=== PATIENT | male | born 1935 | race Caucasian/White ===

== ENCOUNTER 2017-08-26 12:37 | Inpatient (IN) ==
[2017-08-26 13:28] LABS: Basophils # 0.1 10*3/uL (0.0-0.2); Basophils % 0.7 % (0.0-0.8); Eosinophils # 0.1 10*3/uL (0.0-0.87); Eosinophils % 0.5 % (0.00-10.9); Hematocrit 38.5 VOL% (42.0-52.0); Hemoglobin 13.4 GM/DL (14.0-18.0); Immature Granulocytes % 0.2 %; Immature Granulocytes Absolute 0.03 #; Lymphocytes # 1.8 10*3/uL (1.4-4.0); Lymphocytes % 13.3 % (21.2-54.2); Mean Corpuscular HGB Conc 34.8 GM/DL (32-36); Mean Corpuscular Hemoglobin 31 PG (27-34); Mean Corpuscular Volume 88.3 FL (87-102); Mean Platelet Volume 10.2 FL (9.6-12.0); Monocytes % 7.1 % (1.7-12.7); Neutrophils # 10.5 10*3/uL (1.4-7.4); Neutrophils % 78.2 % (38.7-73.9); Platelet Count 269 T/CUMM (130-400); Red Blood Count 4.36 MC/CUMM (3.8-5.5); Red Cell Distribution Width 13.5 % (9.3-17.3); White Blood Count 13.4 T/CUMM (4-12)
[2017-08-26 13:37] LABS: Alanine Aminotransferase 17 U/L (16-61); Albumin 3.8 G/DL (3.4-5.0); Alkaline Phosphatase 78 U/L (45-117); Aspartate Amino Transferase 21 U/L (0-37); Bilirubin,Total < 0.39 MG/DL (0.2-1.0); Blood Urea Nitrogen 14 MG/DL (7-18); Calcium 8.7 MG/DL (8.5-10.1); Glucose 138 MG/DL (74-106); Magnesium 2.3 MG/DL (1.8-2.4); Osmolality,Calculated 266.5 MOS/KG (273-304); Potassium 3.8 MMOL/L (3.5-5.1); Sodium 132 MMOL/L (136-145); Total Protein 7.4 G/DL (6.4-8.3)
[2017-08-26 14:24] LABS: Apearance,Urine Slightly Hazy (Clear); Bilirubin,Urine Negative (Negative); Blood, Urine Negative (Negative); Glucose,Urine (UA) Negative (Negative); Ketones,Urine Negative (Negative); Nitrite,Urine Negative (Negative); Protein,Urine Negative; RBC,Urine <1 /HPF (0-4); Urine Color Yellow (Yellow); Urine Specific Gravity 1.013 (1.001-1.035); Urine Urobilinogen < 2.0 EU/DL (0.2-1.0); WBC,Urine 1 /HPF (0-6)
[2017-08-26] MEDS ORDERED: ACETAMINOPHEN 325 MG TABLET PO PRN (14:36)
[2017-08-26] MEDS ORDERED: ONDANSETRON 4 MG/2 ML VIAL IV PRN (14:36)
[2017-08-26] MEDS ORDERED: LEVOFLOXACIN INJ 500 MG in PREMIX 1 EACH IV STA (14:36)
[2017-08-26] MEDS ORDERED: GLUCAGON 1 MG VIAL IM PRN (14:36)
[2017-08-26] MEDS ORDERED: DEXTROSE 50% 25 GM/50 ML VIAL IV PRN (14:36)
[2017-08-26] MEDS ORDERED: LEVOFLOXACIN INJ 100 ML IV ONE (14:57)
[2017-08-26] MEDS: INSULIN REGULAR 100 UNIT/ML SUBCUT SCH ×2 (17:53→21:24)
[2017-08-26] MEDS ORDERED: ALBUTEROL 2.5 MG/3 ML NEB RESP TX PRN (19:00)
[2017-08-26] MEDS ORDERED: PHENYTOIN ER 100 MG CAPSULE PO ONE (21:00)
[2017-08-26] MEDS ORDERED: PHENYTOIN ER 100 MG CAPSULE PO SCH (21:00)
[2017-08-26] MEDS: CALCIUM (CARBONATE)/VITAMIN D 600 MG-400 UNIT TABLET PO SCH (21:23)
[2017-08-26] MEDS: cloNIDine 0.1 MG TABLET PO SCH (21:23)
[2017-08-26] MEDS: DOCUSATE SODIUM 100 MG CAPSULE PO SCH (21:23)
[2017-08-26] MEDS: POTASSIUM CHLORIDE INJ 10 MEQ in SODIUM CHLORIDE 0.9% 1,000 ML IV SCH (21:24)
[2017-08-27 07:29] LABS: Basophils # 0.1 10*3/uL (0.0-0.2); Basophils % 0.9 % (0.0-0.8); Eosinophils # 0.2 10*3/uL (0.0-0.87); Eosinophils % 2.7 % (0.00-10.9); Hematocrit 36.3 VOL% (42.0-52.0); Hemoglobin 12.8 GM/DL (14.0-18.0); Immature Granulocytes % 0.4 %; Immature Granulocytes Absolute 0.03 #; Lymphocytes % 27.5 % (21.2-54.2); Mean Corpuscular HGB Conc 35.3 GM/DL (32-36); Mean Corpuscular Hemoglobin 31 PG (27-34); Mean Corpuscular Volume 87.1 FL (87-102); Mean Platelet Volume 10.4 FL (9.6-12.0); Monocytes # 0.8 10*3/uL (0.11-0.8); Monocytes % 10.5 % (1.7-12.7); Neutrophils # 4.3 10*3/uL (1.4-7.4); Platelet Count 242 T/CUMM (130-400); Red Blood Count 4.17 MC/CUMM (3.8-5.5); Red Cell Distribution Width 13.6 % (9.3-17.3); White Blood Count 7.4 T/CUMM (4-12)
[2017-08-27 08:08] LABS: Calcium 8.6 MG/DL (8.5-10.1); Free T4 (Free Thyroxine) 0.95 NG/DL (0.76-1.46); Magnesium 2.1 MG/DL (1.8-2.4); Osmolality,Calculated 272.8 MOS/KG (273-304); Potassium 4.1 MMOL/L (3.5-5.1); Risk Ratio 3.24; Thyroid Stimulating Hormone 0.766 uIU/ml (0.358-3.74); VLDL CHOLESTEROL 21.2 MG/DL
[2017-08-27] MEDS: INSULIN REGULAR 100 UNIT/ML SUBCUT SCH ×4 (08:24→21:09)
[2017-08-27 08:41] LABS: Sedimentation Rate-Westergren 13 MM/HR (0-20)
[2017-08-27] MEDS: GLIMEPIRIDE 2 MG TABLET PO SCH ×2 (08:45→16:52)
[2017-08-27] MEDS: hydroCHLOROthiazide 12.5 MG CAPSULE PO SCH (08:46)
[2017-08-27] MEDS: ASPIRIN EC 81 MG TABLET PO SCH (08:46)
[2017-08-27] MEDS: LOSARTAN 50 MG TABLET PO SCH (08:46)
[2017-08-27] MEDS: PANTOPRAZOLE 40 MG TABLET PO SCH (08:46)
[2017-08-27] MEDS: DOCUSATE SODIUM 100 MG CAPSULE PO SCH ×2 (08:46→21:10)
[2017-08-27] MEDS: MULTIVITAMIN (CENTRUM) TABLET PO SCH (08:47)
[2017-08-27] MEDS: PHENYTOIN ER 100 MG CAPSULE PO SCH ×2 (08:47→21:11)
[2017-08-27] MEDS: MAGNESIUM OXIDE 400 MG TABLET PO SCH (08:47)
[2017-08-27] MEDS: POTASSIUM CHLORIDE INJ 10 MEQ in SODIUM CHLORIDE 0.9% 1,000 ML IV SCH ×2 (08:48→23:51)
[2017-08-27] MEDS ORDERED: PHENYTOIN ER 100 MG CAPSULE PO SCH (09:00)
[2017-08-27] MEDS: CALCIUM (CARBONATE)/VITAMIN D 600 MG-400 UNIT TABLET PO SCH (21:10)
[2017-08-27] MEDS: cloNIDine 0.1 MG TABLET PO SCH (21:10)
[2017-08-28 05:03] LABS: Basophils # 0.1 10*3/uL (0.0-0.2); Basophils % 1.3 % (0.0-0.8); Eosinophils # 0.3 10*3/uL (0.0-0.87); Eosinophils % 4.1 % (0.00-10.9); Hematocrit 36.4 VOL% (42.0-52.0); Hemoglobin 12.6 GM/DL (14.0-18.0); Immature Granulocytes % 0.3 %; Immature Granulocytes Absolute 0.02 #; Lymphocytes # 2.8 10*3/uL (1.4-4.0); Lymphocytes % 35.5 % (21.2-54.2); Mean Corpuscular HGB Conc 34.6 GM/DL (32-36); Mean Corpuscular Hemoglobin 31 PG (27-34); Mean Corpuscular Volume 88.1 FL (87-102); Mean Platelet Volume 10.1 FL (9.6-12.0); Monocytes # 0.8 10*3/uL (0.11-0.8); Monocytes % 10.2 % (1.7-12.7); Neutrophils # 3.9 10*3/uL (1.4-7.4); Neutrophils % 48.6 % (38.7-73.9); Platelet Count 252 T/CUMM (130-400); Red Blood Count 4.13 MC/CUMM (3.8-5.5); Red Cell Distribution Width 13.5 % (9.3-17.3)
[2017-08-28 05:31] LABS: Calcium 8.3 MG/DL (8.5-10.1); Osmolality,Calculated 274.5 MOS/KG (273-304); Potassium 4.1 MMOL/L (3.5-5.1)
[2017-08-28] MEDS: INSULIN REGULAR 100 UNIT/ML SUBCUT SCH ×3 (08:26→17:00)
[2017-08-28] MEDS ORDERED: POLYETHYLENE GLYCOL POWDER 17 GM PACK PO PRN (09:07)
[2017-08-28] MEDS: POTASSIUM CHLORIDE INJ 10 MEQ in SODIUM CHLORIDE 0.9% 1,000 ML IV SCH (09:09)
[2017-08-28] MEDS: MULTIVITAMIN (CENTRUM) TABLET PO SCH (09:13)
[2017-08-28] MEDS: PHENYTOIN ER 100 MG CAPSULE PO SCH (09:16)
[2017-08-28] MEDS: LOSARTAN 50 MG TABLET PO SCH (09:17)
[2017-08-28] MEDS: ASPIRIN EC 81 MG TABLET PO SCH (09:18)
[2017-08-28] MEDS: PANTOPRAZOLE 40 MG TABLET PO SCH (09:18)
[2017-08-28] MEDS: MAGNESIUM OXIDE 400 MG TABLET PO SCH (09:19)
[2017-08-28] MEDS: GLIMEPIRIDE 2 MG TABLET PO SCH ×2 (09:20→18:21)
[2017-08-28] MEDS: DOCUSATE SODIUM 100 MG CAPSULE PO SCH (09:20)
[2017-08-28] MEDS: hydroCHLOROthiazide 12.5 MG CAPSULE PO SCH (09:20)
[2017-08-28 12:37] VITALS: BP 135/72
[2017-08-30 14:08] LABS: 25-Hydroxy D Total 47 ng/mL; 25-Hydroxy D2 < 4.0 ng/mL; 25-Hydroxy D3 47 ng/mL
== END 2017-08-28 17:00 | disposition home or self-care (01) | DRG 101 ==
LOC: EDUNIT# → EDBD → N.ED 12:37 → N.EDINP 12:37 → N.2E 16:49
PROVIDERS: ADMIT Family Medicine; ATTEND Family Medicine

== ENCOUNTER 2018-04-16 07:15 | Inpatient (IN) ==
[2018-04-16 08:12] LABS: Basophils # 0.1 10*3/uL (0.0-0.2); Basophils % 0.8 % (0.0-0.8); Eosinophils # 0.2 10*3/uL (0.0-0.87); Eosinophils % 0.8 % (0.00-10.9); Hematocrit 42.8 VOL% (42.0-52.0); Immature Granulocytes % 1.3 %; Immature Granulocytes Absolute 0.23 #; Lymphocytes # 2.7 10*3/uL (1.4-4.0); Lymphocytes % 15.4 % (21.2-54.2); Mean Corpuscular HGB Conc 32.7 GM/DL (32-36); Mean Corpuscular Hemoglobin 31 PG (27-34); Mean Corpuscular Volume 93.9 FL (87-102); Mean Platelet Volume 10.2 FL (9.6-12.0); Monocytes # 0.7 10*3/uL (0.11-0.8); Monocytes % 4.1 % (1.7-12.7); Neutrophils # 13.8 10*3/uL (1.4-7.4); Neutrophils % 77.6 % (38.7-73.9); Platelet Count 314 T/CUMM (130-400); Red Blood Count 4.56 MC/CUMM (3.8-5.5); Red Cell Distribution Width 12.8 % (9.3-17.3); White Blood Count 17.7 T/CUMM (4-12)
[2018-04-16 08:39] LABS: Alanine Aminotransferase 21 U/L (16-61); Albumin 4.2 G/DL (3.4-5.0); Alkaline Phosphatase 100 U/L (45-117); Aspartate Amino Transferase 18 U/L (0-37); Bilirubin,Total < 0.39 MG/DL (0.2-1.0); Blood Urea Nitrogen 20 MG/DL (7-18); Calcium 8.9 MG/DL (8.5-10.1); Glucose 256 MG/DL (74-106); Osmolality,Calculated 273.7 MOS/KG (273-304); Potassium 3.9 MMOL/L (3.5-5.1); Sodium 131 MMOL/L (136-145); Total Protein 7.9 G/DL (6.4-8.3)
[2018-04-16 09:00] LABS: Apearance,Urine Slightly Cloudy (Clear); Bilirubin,Urine Negative (Negative); Blood, Urine Trace mg/dL (Negative); Glucose,Urine (UA) 50 mg/dL (Negative); Ketones,Urine Negative (Negative); Nitrite,Urine Negative (Negative); Protein,Urine 30 MG/DL; Urine Color Yellow (Yellow); Urine Specific Gravity 1.015 (1.001-1.035); Urine Urobilinogen 0.2 EU/DL (0.2-1.0)
[2018-04-16 09:22] LABS: RBC,Urine 0-3 /HPF (0-4); WBC,Urine 0-3 /HPF (0-6)
[2018-04-16] MEDS ORDERED: LORazepam 2 MG/1 ML VIAL ONE (09:44)
[2018-04-16] MEDS ORDERED: LORazepam 2 MG/1 ML VIAL IV STA (09:46)
[2018-04-16] MEDS ORDERED: levETIRAcetam 500 MG/5 ML VIAL IV ONE (09:52)
[2018-04-16] MEDS ORDERED: ONDANSETRON 4 MG/2 ML VIAL IV PRN (11:43)
[2018-04-16] MEDS ORDERED: GLUCAGON 1 MG VIAL IM PRN (11:43)
[2018-04-16] MEDS ORDERED: DEXTROSE 50% 25 GM/50 ML VIAL IV PRN (11:43)
[2018-04-16] MEDS ORDERED: hydroCHLOROthiazide 12.5 MG CAPSULE PO SCH (13:00)
[2018-04-16] MEDS: SODIUM CHLORIDE 0.9% 1,000 ML IV SCH ×2 (13:54→23:08)
[2018-04-16] MEDS: INSULIN REGULAR 100 UNIT/ML SUBCUT SCH ×2 (13:55→19:00)
[2018-04-16] MEDS: LORazepam 2 MG/1 ML VIAL IV PRN ×3 (14:00→23:05)
[2018-04-16] MEDS ORDERED: PHENYTOIN ER 100 MG CAPSULE PO SCH (15:00)
[2018-04-16] MEDS: TAMSULOSIN 0.4 MG CAPSULE PO SCH (19:00)
[2018-04-16] MEDS: GLIMEPIRIDE 2 MG TABLET PO SCH (19:00)
[2018-04-16] MEDS ORDERED: levETIRAcetam 500 MG TABLET PO SCH (21:00)
[2018-04-16] MEDS: cloNIDine 0.1 MG TABLET PO SCH (21:12)
[2018-04-16] MEDS: CALCIUM (CARBONATE)/VITAMIN D 600 MG-400 UNIT TABLET PO SCH (21:12)
[2018-04-16] MEDS: DOCUSATE SODIUM 100 MG CAPSULE PO SCH (21:12)
[2018-04-16 23:38] LABS: Apearance,Urine CLEAR (Clear); Bacteria,Urine Occasional /HPF (Few); Bilirubin,Urine Negative (Negative); Blood, Urine Small mg/dL (Negative); Glucose,Urine (UA) Negative (Negative); Ketones,Urine Negative (Negative); Mucus,Urine Occasional /LPF (Occasional); Nitrite,Urine Negative (Negative); Protein,Urine Negative; RBC,Urine 2 /HPF (0-4); Urine Color Straw (Yellow); Urine Specific Gravity 1.006 (1.001-1.035); Urine Urobilinogen < 2.0 EU/DL (0.2-1.0)
[2018-04-17] MEDS: INSULIN REGULAR 100 UNIT/ML SUBCUT SCH ×5 (00:50→23:55)
[2018-04-17] MEDS: SODIUM CHLORIDE 0.9% 1,000 ML IV SCH ×3 (03:00→19:58)
[2018-04-17 05:10] LABS: Basophils # 0.1 10*3/uL (0.0-0.2); Basophils % 0.7 % (0.0-0.8); Eosinophils # 0.1 10*3/uL (0.0-0.87); Eosinophils % 0.8 % (0.00-10.9); Hematocrit 36.7 VOL% (42.0-52.0); Hemoglobin 12.9 GM/DL (14.0-18.0); Immature Granulocytes % 0.6 %; Immature Granulocytes Absolute 0.07 #; Lymphocytes # 1.6 10*3/uL (1.4-4.0); Lymphocytes % 12.5 % (21.2-54.2); Mean Corpuscular HGB Conc 35.1 GM/DL (32-36); Mean Corpuscular Hemoglobin 31 PG (27-34); Mean Platelet Volume 10.2 FL (9.6-12.0); Monocytes # 1.3 10*3/uL (0.11-0.8); Monocytes % 10.2 % (1.7-12.7); Neutrophils # 9.5 10*3/uL (1.4-7.4); Neutrophils % 75.2 % (38.7-73.9); Platelet Count 282 T/CUMM (130-400); Red Blood Count 4.22 MC/CUMM (3.8-5.5); Red Cell Distribution Width 12.7 % (9.3-17.3); White Blood Count 12.6 T/CUMM (4-12)
[2018-04-17 05:41] LABS: Albumin 3.1 G/DL (3.4-5.0); Bilirubin,Total 0.6 MG/DL (0.2-1.0); Calcium 8.3 MG/DL (8.5-10.1); Free T4 (Free Thyroxine) 0.91 NG/DL (0.76-1.46); Potassium 3.5 MMOL/L (3.5-5.1); Thyroid Stimulating Hormone 0.629 uIU/ml (0.358-3.74); Total Protein 6.8 G/DL (6.4-8.3)
[2018-04-17] MEDS ORDERED: PANTOPRAZOLE 40 MG TABLET PO SCH (09:00)
[2018-04-17 09:05] LABS: Sedimentation Rate-Westergren 15 MM/HR (0-20)
[2018-04-17] MEDS: GLIMEPIRIDE 2 MG TABLET PO SCH ×2 (10:25→17:30)
[2018-04-17] MEDS: ASPIRIN EC 325 MG TABLET PO SCH (10:26)
[2018-04-17] MEDS: DOCUSATE SODIUM 100 MG CAPSULE PO SCH ×2 (10:26→20:10)
[2018-04-17] MEDS: LOSARTAN 50 MG TABLET PO SCH (10:26)
[2018-04-17] MEDS: MULTIVITAMIN (CENTRUM) TABLET PO SCH (10:26)
[2018-04-17] MEDS: hydroCHLOROthiazide 12.5 MG CAPSULE PO SCH (10:26)
[2018-04-17] MEDS: MAGNESIUM OXIDE 400 MG TABLET PO SCH (10:27)
[2018-04-17] MEDS: ASCORBIC ACID 500 MG TABLET PO SCH (10:27)
[2018-04-17] MEDS: CALCITONIN NASAL SPRAY 3.7 ML BOTTLE ONE NARE SCH (10:27)
[2018-04-17] MEDS: TAMSULOSIN 0.4 MG CAPSULE PO SCH (17:30)
[2018-04-17] MEDS: PANTOPRAZOLE 40 MG VIAL IV SCH (17:30)
[2018-04-17] MEDS: cloNIDine 0.1 MG TABLET PO SCH (20:10)
[2018-04-17] MEDS: CALCIUM (CARBONATE)/VITAMIN D 600 MG-400 UNIT TABLET PO SCH (20:10)
[2018-04-17] MEDS: LORazepam 2 MG/1 ML VIAL IV PRN (22:25)
[2018-04-18] MEDS: SODIUM CHLORIDE 0.9% 1,000 ML IV SCH ×3 (03:14→15:50)
[2018-04-18] MEDS: INSULIN REGULAR 100 UNIT/ML SUBCUT SCH ×4 (05:36→23:41)
[2018-04-18 05:40] LABS: Basophils # 0.1 10*3/uL (0.0-0.2); Basophils % 1.1 % (0.0-0.8); Eosinophils # 0.1 10*3/uL (0.0-0.87); Eosinophils % 0.8 % (0.00-10.9); Hematocrit 36.5 VOL% (42.0-52.0); Hemoglobin 12.8 GM/DL (14.0-18.0); Immature Granulocytes % 0.6 %; Immature Granulocytes Absolute 0.07 #; Lymphocytes # 1.1 10*3/uL (1.4-4.0); Lymphocytes % 9.4 % (21.2-54.2); Mean Corpuscular HGB Conc 35.1 GM/DL (32-36); Mean Corpuscular Hemoglobin 31 PG (27-34); Mean Corpuscular Volume 87.3 FL (87-102); Monocytes # 1.3 10*3/uL (0.11-0.8); Monocytes % 10.5 % (1.7-12.7); Neutrophils # 9.3 10*3/uL (1.4-7.4); Neutrophils % 77.6 % (38.7-73.9); Platelet Count 243 T/CUMM (130-400); Red Blood Count 4.18 MC/CUMM (3.8-5.5); Red Cell Distribution Width 12.5 % (9.3-17.3)
[2018-04-18 05:57] LABS: Albumin 2.9 G/DL (3.4-5.0); Bilirubin,Total 0.5 MG/DL (0.2-1.0); Calcium 8.1 MG/DL (8.5-10.1); Osmolality,Calculated 271.8 MOS/KG (273-304); Potassium 3.6 MMOL/L (3.5-5.1); Total Protein 6.6 G/DL (6.4-8.3)
[2018-04-18] MEDS: PANTOPRAZOLE 40 MG VIAL IV SCH (09:16)
[2018-04-18] MEDS: GLIMEPIRIDE 2 MG TABLET PO SCH ×2 (15:08→19:43)
[2018-04-18] MEDS: ASPIRIN EC 325 MG TABLET PO SCH (15:08)
[2018-04-18] MEDS: DOCUSATE SODIUM 100 MG CAPSULE PO SCH ×2 (15:09→20:20)
[2018-04-18] MEDS: MULTIVITAMIN (CENTRUM) TABLET PO SCH (15:09)
[2018-04-18] MEDS: hydroCHLOROthiazide 12.5 MG CAPSULE PO SCH (15:10)
[2018-04-18] MEDS: LOSARTAN 50 MG TABLET PO SCH (15:10)
[2018-04-18] MEDS: MAGNESIUM OXIDE 400 MG TABLET PO SCH (15:11)
[2018-04-18] MEDS: ASCORBIC ACID 500 MG TABLET PO SCH (15:11)
[2018-04-18] MEDS: CALCITONIN NASAL SPRAY 3.7 ML BOTTLE ONE NARE SCH (15:11)
[2018-04-18] MEDS: TAMSULOSIN 0.4 MG CAPSULE PO SCH (19:43)
[2018-04-18] MEDS ORDERED: DILTIAZEM 100 MG VIAL.ADD IV ONE (20:04)
[2018-04-18] MEDS: ENOXAPARIN 30 MG/0.3 ML SYRINGE SUBCUT SCH (20:06)
[2018-04-18] MEDS: DILTIAZEM INJ 100 MG in SODIUM CHLORIDE 0.9% 100 ML IV SCH (20:06)
[2018-04-18] MEDS: CALCIUM (CARBONATE)/VITAMIN D 600 MG-400 UNIT TABLET PO SCH (20:19)
[2018-04-18] MEDS: cloNIDine 0.1 MG TABLET PO SCH (20:19)
[2018-04-18 21:28] LABS: Calcium 8.4 MG/DL (8.5-10.1); Osmolality,Calculated 274.5 MOS/KG (273-304); Potassium 3.7 MMOL/L (3.5-5.1); Thyroid Stimulating Hormone 1.46 uIU/ml (0.358-3.74)
[2018-04-19] MEDS: SODIUM CHLORIDE 0.9% 1,000 ML IV SCH ×3 (00:03→16:51)
[2018-04-19] MEDS: INSULIN REGULAR 100 UNIT/ML SUBCUT SCH ×3 (05:47→20:34)
[2018-04-19 06:13] LABS: Osmolality,Calculated 274.5 MOS/KG (273-304); Potassium 3.9 MMOL/L (3.5-5.1)
[2018-04-19 08:05] LABS: Basophils # 0.1 10*3/uL (0.0-0.2); Basophils % 0.8 % (0.0-0.8); Eosinophils # 0.1 10*3/uL (0.0-0.87); Eosinophils % 0.4 % (0.00-10.9); Hematocrit 37.1 VOL% (42.0-52.0); Hemoglobin 12.8 GM/DL (14.0-18.0); Immature Granulocytes % 0.7 %; Lymphocytes # 1.1 10*3/uL (1.4-4.0); Lymphocytes % 8.1 % (21.2-54.2); Mean Corpuscular HGB Conc 34.5 GM/DL (32-36); Mean Corpuscular Hemoglobin 31 PG (27-34); Mean Corpuscular Volume 88.3 FL (87-102); Mean Platelet Volume 10.3 FL (9.6-12.0); Monocytes # 1.4 10*3/uL (0.11-0.8); Monocytes % 10.2 % (1.7-12.7); Neutrophils # 11.1 10*3/uL (1.4-7.4); Neutrophils % 79.8 % (38.7-73.9); Platelet Count 244 T/CUMM (130-400); Red Cell Distribution Width 12.4 % (9.3-17.3); White Blood Count 13.9 T/CUMM (4-12)
[2018-04-19] MEDS: PANTOPRAZOLE 40 MG VIAL IV SCH (10:17)
[2018-04-19] MEDS: MULTIVITAMIN (CENTRUM) TABLET PO SCH (15:58)
[2018-04-19] MEDS: GLIMEPIRIDE 2 MG TABLET PO SCH ×2 (15:58→20:33)
[2018-04-19] MEDS: ASPIRIN EC 325 MG TABLET PO SCH (15:58)
[2018-04-19] MEDS: DOCUSATE SODIUM 100 MG CAPSULE PO SCH ×2 (15:59→21:25)
[2018-04-19] MEDS: LOSARTAN 50 MG TABLET PO SCH (15:59)
[2018-04-19] MEDS: hydroCHLOROthiazide 12.5 MG CAPSULE PO SCH (16:00)
[2018-04-19] MEDS: CALCITONIN NASAL SPRAY 3.7 ML BOTTLE ONE NARE SCH (16:00)
[2018-04-19] MEDS: MAGNESIUM OXIDE 400 MG TABLET PO SCH (16:00)
[2018-04-19] MEDS: ASCORBIC ACID 500 MG TABLET PO SCH (16:00)
[2018-04-19] MEDS: TAMSULOSIN 0.4 MG CAPSULE PO SCH (20:33)
[2018-04-19] MEDS: CALCIUM (CARBONATE)/VITAMIN D 600 MG-400 UNIT TABLET PO SCH (21:25)
[2018-04-19] MEDS: cloNIDine 0.1 MG TABLET PO SCH (21:25)
[2018-04-19] MEDS: ENOXAPARIN 30 MG/0.3 ML SYRINGE SUBCUT SCH (22:05)
[2018-04-20] MEDS: INSULIN REGULAR 100 UNIT/ML SUBCUT SCH ×4 (00:29→18:57)
[2018-04-20] MEDS: SODIUM CHLORIDE 0.9% 1,000 ML IV SCH ×5 (03:52→19:48)
[2018-04-20 04:31] LABS: Basophils # 0.1 10*3/uL (0.0-0.2); Basophils % 0.7 % (0.0-0.8); Eosinophils # 0.1 10*3/uL (0.0-0.87); Eosinophils % 0.4 % (0.00-10.9); Hematocrit 33.5 VOL% (42.0-52.0); Hemoglobin 11.8 GM/DL (14.0-18.0); Immature Granulocytes % 0.5 %; Immature Granulocytes Absolute 0.07 #; Lymphocytes # 1.4 10*3/uL (1.4-4.0); Lymphocytes % 9.9 % (21.2-54.2); Mean Corpuscular HGB Conc 35.2 GM/DL (32-36); Mean Corpuscular Hemoglobin 31 PG (27-34); Mean Corpuscular Volume 87.7 FL (87-102); Mean Platelet Volume 10.5 FL (9.6-12.0); Monocytes # 1.3 10*3/uL (0.11-0.8); Monocytes % 8.8 % (1.7-12.7); Neutrophils # 11.6 10*3/uL (1.4-7.4); Neutrophils % 79.7 % (38.7-73.9); Platelet Count 226 T/CUMM (130-400); Red Blood Count 3.82 MC/CUMM (3.8-5.5); Red Cell Distribution Width 12.5 % (9.3-17.3); White Blood Count 14.5 T/CUMM (4-12)
[2018-04-20 04:54] LABS: Potassium 3.6 MMOL/L (3.5-5.1)
[2018-04-20 04:59] LABS: Calcium 7.9 MG/DL (8.5-10.1); Potassium 3.4 MMOL/L (3.5-5.1)
[2018-04-20] MEDS ORDERED: DILTIAZEM 50 MG/10 ML VIAL IV ONE (06:32)
[2018-04-20] MEDS: DILTIAZEM INJ 100 MG in SODIUM CHLORIDE 0.9% 100 ML IV SCH ×2 (06:42→11:46)
[2018-04-20] MEDS ORDERED: DILTIAZEM 25 MG/5 ML VIAL IV ONE (07:00)
[2018-04-20] MEDS ORDERED: METOPROLOL TARTRATE 5 MG/5 ML VIAL IV ONE (07:07)
[2018-04-20] MEDS: LOSARTAN 50 MG TABLET PO SCH (08:55)
[2018-04-20] MEDS: GLIMEPIRIDE 2 MG TABLET PO SCH ×2 (08:55→16:05)
[2018-04-20] MEDS: ASPIRIN EC 325 MG TABLET PO SCH (08:55)
[2018-04-20] MEDS: DOCUSATE SODIUM 100 MG CAPSULE PO SCH ×2 (08:55→22:08)
[2018-04-20] MEDS: MULTIVITAMIN (CENTRUM) TABLET PO SCH (08:55)
[2018-04-20] MEDS: MAGNESIUM OXIDE 400 MG TABLET PO SCH (08:56)
[2018-04-20] MEDS: hydroCHLOROthiazide 12.5 MG CAPSULE PO SCH (08:56)
[2018-04-20] MEDS: ASCORBIC ACID 500 MG TABLET PO SCH (08:56)
[2018-04-20] MEDS ORDERED: MAGNESIUM SULF RIDER 4 GM in PREMIX 1 EACH IV PRN (08:58)
[2018-04-20] MEDS: PANTOPRAZOLE 40 MG VIAL IV SCH (09:02)
[2018-04-20] MEDS: CALCITONIN NASAL SPRAY 3.7 ML BOTTLE ONE NARE SCH (09:14)
[2018-04-20] MEDS: ENOXAPARIN 60 MG/0.6 ML SYRINGE SUBCUT SCH ×2 (11:44→22:20)
[2018-04-20] MEDS: TAMSULOSIN 0.4 MG CAPSULE PO SCH (16:05)
[2018-04-20] MEDS: cloNIDine 0.1 MG TABLET PO SCH (22:08)
[2018-04-20] MEDS: CALCIUM (CARBONATE)/VITAMIN D 600 MG-400 UNIT TABLET PO SCH (22:08)
[2018-04-21] MEDS: INSULIN REGULAR 100 UNIT/ML SUBCUT SCH ×4 (00:30→17:57)
[2018-04-21] MEDS: SODIUM CHLORIDE 0.9% 1,000 ML IV SCH ×6 (02:13→21:00)
[2018-04-21] MEDS: DILTIAZEM INJ 100 MG in SODIUM CHLORIDE 0.9% 100 ML IV SCH ×4 (02:14→21:00)
[2018-04-21 05:09] LABS: Basophils # 0.1 10*3/uL (0.0-0.2); Basophils % 0.9 % (0.0-0.8); Eosinophils # 0.1 10*3/uL (0.0-0.87); Eosinophils % 1.4 % (0.00-10.9); Hematocrit 32.9 VOL% (42.0-52.0); Hemoglobin 11.5 GM/DL (14.0-18.0); Immature Granulocytes % 0.4 %; Immature Granulocytes Absolute 0.04 #; Lymphocytes # 1.3 10*3/uL (1.4-4.0); Lymphocytes % 12.6 % (21.2-54.2); Mean Corpuscular Hemoglobin 31 PG (27-34); Mean Corpuscular Volume 87.7 FL (87-102); Mean Platelet Volume 10.3 FL (9.6-12.0); Monocytes # 0.9 10*3/uL (0.11-0.8); Neutrophils # 7.8 10*3/uL (1.4-7.4); Neutrophils % 75.7 % (38.7-73.9); Platelet Count 233 T/CUMM (130-400); Red Blood Count 3.75 MC/CUMM (3.8-5.5); Red Cell Distribution Width 12.8 % (9.3-17.3); White Blood Count 10.3 T/CUMM (4-12)
[2018-04-21 05:47] LABS: Calcium 8.1 MG/DL (8.5-10.1); Osmolality,Calculated 287.7 MOS/KG (273-304); Potassium 3.4 MMOL/L (3.5-5.1)
[2018-04-21] MEDS: POTASSIUM CHLORIDE RIDER 10 MEQ in PREMIX 1 EACH IV PRN ×3 (06:05→08:30)
[2018-04-21] MEDS: PANTOPRAZOLE 40 MG VIAL IV SCH (08:29)
[2018-04-21] MEDS: MAGNESIUM SULF RIDER 2 GM in PREMIX 1 EACH IV PRN (08:31)
[2018-04-21] MEDS: GLIMEPIRIDE 2 MG TABLET PO SCH ×2 (08:39→16:12)
[2018-04-21] MEDS: ASPIRIN EC 325 MG TABLET PO SCH (08:39)
[2018-04-21] MEDS: DOCUSATE SODIUM 100 MG CAPSULE PO SCH ×2 (08:40→21:09)
[2018-04-21] MEDS: hydroCHLOROthiazide 12.5 MG CAPSULE PO SCH (08:40)
[2018-04-21] MEDS: MAGNESIUM OXIDE 400 MG TABLET PO SCH (08:40)
[2018-04-21] MEDS: MULTIVITAMIN (CENTRUM) TABLET PO SCH (08:40)
[2018-04-21] MEDS: LOSARTAN 50 MG TABLET PO SCH (08:40)
[2018-04-21] MEDS: ASCORBIC ACID 500 MG TABLET PO SCH (08:41)
[2018-04-21] MEDS: CALCITONIN NASAL SPRAY 3.7 ML BOTTLE ONE NARE SCH (12:19)
[2018-04-21] MEDS: ENOXAPARIN 60 MG/0.6 ML SYRINGE SUBCUT SCH (12:20)
[2018-04-21] MEDS: TAMSULOSIN 0.4 MG CAPSULE PO SCH (16:13)
[2018-04-21] MEDS: CALCIUM (CARBONATE)/VITAMIN D 600 MG-400 UNIT TABLET PO SCH (21:09)
[2018-04-21] MEDS: cloNIDine 0.1 MG TABLET PO SCH (21:09)
[2018-04-22] MEDS: SODIUM CHLORIDE 0.9% 1,000 ML IV SCH ×5 (02:56→23:00)
[2018-04-22 03:44] LABS: Basophils # 0.1 10*3/uL (0.0-0.2); Eosinophils # 0.3 10*3/uL (0.0-0.87); Eosinophils % 3.3 % (0.00-10.9); Hemoglobin 12.1 GM/DL (14.0-18.0); Immature Granulocytes % 0.4 %; Immature Granulocytes Absolute 0.04 #; Lymphocytes # 1.2 10*3/uL (1.4-4.0); Mean Corpuscular HGB Conc 35.6 GM/DL (32-36); Mean Corpuscular Hemoglobin 31 PG (27-34); Mean Corpuscular Volume 86.7 FL (87-102); Mean Platelet Volume 10.5 FL (9.6-12.0); Monocytes % 10.6 % (1.7-12.7); Neutrophils # 6.5 10*3/uL (1.4-7.4); Neutrophils % 71.7 % (38.7-73.9); Platelet Count 223 T/CUMM (130-400); Red Blood Count 3.92 MC/CUMM (3.8-5.5); Red Cell Distribution Width 12.7 % (9.3-17.3); White Blood Count 9.1 T/CUMM (4-12)
[2018-04-22 03:59] LABS: INR 1.1; PT Patient Result 11.2 SECS
[2018-04-22 04:14] LABS: Calcium 7.9 MG/DL (8.5-10.1); Osmolality,Calculated 284.8 MOS/KG (273-304); Potassium 3.5 MMOL/L (3.5-5.1)
[2018-04-22 04:16] LABS: Albumin 2.3 G/DL (3.4-5.0); Bilirubin,Total 0.6 MG/DL (0.2-1.0); Calcium 7.9 MG/DL (8.5-10.1); Potassium 3.5 MMOL/L (3.5-5.1); Total Protein 6.1 G/DL (6.4-8.3)
[2018-04-22] MEDS: INSULIN REGULAR 100 UNIT/ML SUBCUT SCH ×4 (06:06→18:16)
[2018-04-22] MEDS: DILTIAZEM INJ 100 MG in SODIUM CHLORIDE 0.9% 100 ML IV SCH ×3 (08:30→21:41)
[2018-04-22] MEDS: ASPIRIN EC 325 MG TABLET PO SCH (09:06)
[2018-04-22] MEDS: DOCUSATE SODIUM 100 MG CAPSULE PO SCH ×2 (09:07→21:42)
[2018-04-22] MEDS: CALCITONIN NASAL SPRAY 3.7 ML BOTTLE ONE NARE SCH (09:09)
[2018-04-22] MEDS: PANTOPRAZOLE 40 MG VIAL IV SCH (09:09)
[2018-04-22] MEDS: GLIMEPIRIDE 2 MG TABLET PO SCH ×2 (09:45→16:35)
[2018-04-22] MEDS ORDERED: ceFAZolin 1,000 MG in SYRINGE 1 EACH IV ONE (11:30)
[2018-04-22] MEDS ORDERED: ceFAZolin 1,000 MG VIAL ONE (11:40)
[2018-04-22] MEDS ORDERED: DILTIAZEM 25 MG/5 ML VIAL IV ONE (11:56)
[2018-04-22] MEDS ORDERED: ETOMIDATE 20 MG/10 ML VIAL IV ONE (13:05)
[2018-04-22] MEDS ORDERED: LIDOCAINE 2% 5 ML VIAL ONE (13:05)
[2018-04-22] MEDS: MULTIVITAMIN (CENTRUM) TABLET PO SCH (17:04)
[2018-04-22] MEDS: LOSARTAN 50 MG TABLET PO SCH (17:04)
[2018-04-22] MEDS: hydroCHLOROthiazide 12.5 MG CAPSULE PO SCH (17:05)
[2018-04-22] MEDS: TAMSULOSIN 0.4 MG CAPSULE PO SCH (17:05)
[2018-04-22] MEDS: ASCORBIC ACID 500 MG TABLET PO SCH (17:05)
[2018-04-22] MEDS: MAGNESIUM OXIDE 400 MG TABLET PO SCH (17:05)
[2018-04-22] MEDS: ACETAMINOPHEN 325 MG TABLET PO PRN ×2 (17:07→22:29)
[2018-04-22] MEDS: cloNIDine 0.1 MG TABLET PO SCH (21:27)
[2018-04-22] MEDS: CALCIUM (CARBONATE)/VITAMIN D 600 MG-400 UNIT TABLET PO SCH (21:27)
[2018-04-23] MEDS: INSULIN REGULAR 100 UNIT/ML SUBCUT SCH ×4 (00:35→18:11)
[2018-04-23 03:50] LABS: Basophils # 0.1 10*3/uL (0.0-0.2); Basophils % 0.9 % (0.0-0.8); Eosinophils # 0.3 10*3/uL (0.0-0.87); Eosinophils % 3.1 % (0.00-10.9); Hematocrit 34.5 VOL% (42.0-52.0); Hemoglobin 12.2 GM/DL (14.0-18.0); Immature Granulocytes % 0.5 %; Immature Granulocytes Absolute 0.05 #; Lymphocytes # 1.5 10*3/uL (1.4-4.0); Lymphocytes % 14.1 % (21.2-54.2); Mean Corpuscular HGB Conc 35.4 GM/DL (32-36); Mean Corpuscular Hemoglobin 31 PG (27-34); Mean Corpuscular Volume 87.3 FL (87-102); Mean Platelet Volume 10.1 FL (9.6-12.0); Monocytes # 0.9 10*3/uL (0.11-0.8); Monocytes % 8.9 % (1.7-12.7); Neutrophils # 7.5 10*3/uL (1.4-7.4); Neutrophils % 72.5 % (38.7-73.9); Platelet Count 248 T/CUMM (130-400); Red Blood Count 3.95 MC/CUMM (3.8-5.5); Red Cell Distribution Width 12.2 % (9.3-17.3); White Blood Count 10.4 T/CUMM (4-12)
[2018-04-23] MEDS ORDERED: SODIUM CHLORIDE 0.9% 100 ML IV ONE (03:57)
[2018-04-23] MEDS: DILTIAZEM INJ 100 MG in SODIUM CHLORIDE 0.9% 100 ML IV SCH ×4 (04:05→22:26)
[2018-04-23 04:39] LABS: Calcium 7.7 MG/DL (8.5-10.1); Osmolality,Calculated 275.5 MOS/KG (273-304); Potassium 3.1 MMOL/L (3.5-5.1); Prealbumin 7.6 MG/DL (20-40)
[2018-04-23 04:40] LABS: Albumin 2.5 G/DL (3.4-5.0); Bilirubin,Total 0.7 MG/DL (0.2-1.0); Calcium 7.7 MG/DL (8.5-10.1); Osmolality,Calculated 277.4 MOS/KG (273-304); Potassium 3.2 MMOL/L (3.5-5.1); Total Protein 5.8 G/DL (6.4-8.3)
[2018-04-23] MEDS: POTASSIUM CHLORIDE RIDER 10 MEQ in PREMIX 1 EACH IV PRN ×6 (06:00→16:04)
[2018-04-23] MEDS: SODIUM CHLORIDE 0.9% 1,000 ML IV SCH ×2 (07:25→16:03)
[2018-04-23] MEDS: MAGNESIUM SULF RIDER 2 GM in PREMIX 1 EACH IV PRN (08:53)
[2018-04-23] MEDS: hydroCHLOROthiazide 12.5 MG CAPSULE PO SCH (08:54)
[2018-04-23] MEDS: MAGNESIUM OXIDE 400 MG TABLET PO SCH (08:54)
[2018-04-23] MEDS: ASPIRIN EC 325 MG TABLET PO SCH (08:54)
[2018-04-23] MEDS: MULTIVITAMIN (CENTRUM) TABLET PO SCH (08:55)
[2018-04-23] MEDS: ASCORBIC ACID 500 MG TABLET PO SCH (08:55)
[2018-04-23] MEDS: ACETAMINOPHEN 325 MG TABLET PO PRN ×2 (08:55→20:58)
[2018-04-23] MEDS: LOSARTAN 50 MG TABLET PO SCH (08:55)
[2018-04-23] MEDS: GLIMEPIRIDE 2 MG TABLET PO SCH ×2 (08:56→16:48)
[2018-04-23] MEDS: PANTOPRAZOLE 40 MG VIAL IV SCH (08:57)
[2018-04-23] MEDS: DOCUSATE SODIUM 100 MG CAPSULE PO SCH ×2 (08:57→20:58)
[2018-04-23] MEDS: CALCITONIN NASAL SPRAY 3.7 ML BOTTLE ONE NARE SCH (09:07)
[2018-04-23] MEDS: ENOXAPARIN 30 MG/0.3 ML SYRINGE SUBCUT SCH (11:14)
[2018-04-23] MEDS: TAMSULOSIN 0.4 MG CAPSULE PO SCH (16:48)
[2018-04-23] MEDS: cloNIDine 0.1 MG TABLET PO SCH (20:58)
[2018-04-23] MEDS: CALCIUM (CARBONATE)/VITAMIN D 600 MG-400 UNIT TABLET PO SCH (20:58)
[2018-04-23] MEDS ORDERED: POTASSIUM CHLORIDE 20 MEQ PACK PO ONE (21:53)
[2018-04-23] MEDS: SOTALOL 80 MG TABLET PO SCH (22:15)
[2018-04-24] MEDS: INSULIN REGULAR 100 UNIT/ML SUBCUT SCH ×4 (00:40→19:05)
[2018-04-24] MEDS: MULTIVITAMIN (CENTRUM) TABLET PO SCH (08:09)
[2018-04-24] MEDS: GLIMEPIRIDE 2 MG TABLET PO SCH ×2 (08:09→16:55)
[2018-04-24] MEDS: ACETAMINOPHEN 325 MG TABLET PO PRN ×2 (08:10→17:00)
[2018-04-24] MEDS: ASCORBIC ACID 500 MG TABLET PO SCH (08:11)
[2018-04-24] MEDS: SOTALOL 80 MG TABLET PO SCH ×2 (08:11→21:36)
[2018-04-24] MEDS: hydroCHLOROthiazide 12.5 MG CAPSULE PO SCH (08:11)
[2018-04-24] MEDS: MAGNESIUM OXIDE 400 MG TABLET PO SCH (08:12)
[2018-04-24] MEDS: ASPIRIN EC 325 MG TABLET PO SCH (08:12)
[2018-04-24] MEDS: DOCUSATE SODIUM 100 MG CAPSULE PO SCH ×2 (08:12→21:37)
[2018-04-24] MEDS: PANTOPRAZOLE 40 MG VIAL IV SCH (08:13)
[2018-04-24] MEDS: LOSARTAN 50 MG TABLET PO SCH (08:13)
[2018-04-24] MEDS: SODIUM CHLORIDE 0.9% 1,000 ML IV SCH ×4 (08:17→16:56)
[2018-04-24] MEDS: ZINC OXIDE PASTE 113 GM TUBE TOP SCH ×2 (08:24→21:37)
[2018-04-24] MEDS: CALCITONIN NASAL SPRAY 3.7 ML BOTTLE ONE NARE SCH (08:24)
[2018-04-24] MEDS ORDERED: DILTIAZEM 25 MG/5 ML VIAL IV ONE (09:37)
[2018-04-24] MEDS ORDERED: SOTALOL 80 MG TABLET PO ONE (09:40)
[2018-04-24] MEDS: ENOXAPARIN 30 MG/0.3 ML SYRINGE SUBCUT SCH (10:27)
[2018-04-24] MEDS: DILTIAZEM 60 MG TABLET PO SCH ×3 (10:43→17:00)
[2018-04-24] MEDS: TAMSULOSIN 0.4 MG CAPSULE PO SCH (16:55)
[2018-04-24] MEDS: POTASSIUM CHLORIDE RIDER 10 MEQ in PREMIX 1 EACH IV PRN ×2 (18:25→19:25)
[2018-04-24 20:11] LABS: Bilirubin,Urine Negative (Negative); Blood, Urine Large mg/dL (Negative); Glucose,Urine (UA) 50 mg/dL (Negative); Ketones,Urine Negative (Negative); Nitrite,Urine Negative (Negative); Protein,Urine 100 MG/DL; RBC,Urine 10580 /HPF (0-4); Urine Color Red (Yellow); Urine Specific Gravity 1.014 (1.001-1.035); Urine Urobilinogen < 2.0 EU/DL (0.2-1.0); WBC,Urine 335 /HPF (0-6)
[2018-04-24 20:12] LABS: Apearance,Urine Turbid (Clear)
[2018-04-24] MEDS: DILTIAZEM INJ 100 MG in SODIUM CHLORIDE 0.9% 100 ML IV SCH (21:32)
[2018-04-24] MEDS: CALCIUM (CARBONATE)/VITAMIN D 600 MG-400 UNIT TABLET PO SCH (21:36)
[2018-04-24] MEDS: cloNIDine 0.1 MG TABLET PO SCH (21:36)
[2018-04-25] MEDS: DILTIAZEM 60 MG TABLET PO SCH ×3 (00:35→12:44)
[2018-04-25] MEDS: SODIUM CHLORIDE 0.9% 1,000 ML IV SCH ×2 (00:40→08:50)
[2018-04-25] MEDS: INSULIN REGULAR 100 UNIT/ML SUBCUT SCH ×2 (00:45→05:48)
[2018-04-25 03:26] LABS: Calcium 7.6 MG/DL (8.5-10.1); Osmolality,Calculated 273.2 MOS/KG (273-304); Potassium 3.8 MMOL/L (3.5-5.1)
[2018-04-25] MEDS: PANTOPRAZOLE 40 MG VIAL IV SCH (09:30)
[2018-04-25] MEDS: LOSARTAN 50 MG TABLET PO SCH (09:31)
[2018-04-25] MEDS: MAGNESIUM OXIDE 400 MG TABLET PO SCH (09:31)
[2018-04-25] MEDS: ASPIRIN EC 325 MG TABLET PO SCH (09:31)
[2018-04-25] MEDS: MULTIVITAMIN (CENTRUM) TABLET PO SCH (09:32)
[2018-04-25] MEDS: SOTALOL 80 MG TABLET PO SCH (09:32)
[2018-04-25] MEDS: ASCORBIC ACID 500 MG TABLET PO SCH (09:32)
[2018-04-25] MEDS: hydroCHLOROthiazide 12.5 MG CAPSULE PO SCH (09:32)
[2018-04-25] MEDS: GLIMEPIRIDE 2 MG TABLET PO SCH (09:32)
[2018-04-25] MEDS: ZINC OXIDE PASTE 113 GM TUBE TOP SCH (09:33)
[2018-04-25] MEDS: DOCUSATE SODIUM 100 MG CAPSULE PO SCH (09:33)
[2018-04-25] MEDS: CALCITONIN NASAL SPRAY 3.7 ML BOTTLE ONE NARE SCH (09:34)
[2018-04-25] MEDS: ENOXAPARIN 30 MG/0.3 ML SYRINGE SUBCUT SCH (10:02)
[2018-04-25 11:46] VITALS: BP 160/93
[2018-04-25] MEDS ORDERED: levETIRAcetam 500 MG TABLET PO SCH (21:00)
[2018-04-25] MEDS ORDERED: SULFAMETHOX/TRIMETHOPRIM 800-160 MG TABLET PO SCH (21:00)
== END 2018-04-25 15:15 | DRG 101 ==
LOC: EDUNIT# → EDBD → N.ED 07:15 → N.EDINP 09:51 → N.CC 10:56 → N.TELEN 04-19 21:36
PROVIDERS: ADMIT Family Medicine; ATTEND Family Medicine
PROC: EGDWPEG (ICD-10-PCS; 2018-04-22 11:35)

== ENCOUNTER 2018-04-27 21:08 | Inpatient (IN) ==
[2018-04-27] MEDS ORDERED: ETOMIDATE 20 MG/10 ML VIAL IV STA (21:30)
[2018-04-27] MEDS ORDERED: ROCURONIUM 100 MG/10 ML VIAL IV STA (21:30)
[2018-04-27] MEDS: PROPOFOL 1,000 MG/100 ML BOTTLE IV SCH (22:00)
[2018-04-27 22:03] LABS: Basophils % 0.2 % (0.0-0.8); Eosinophils % 0.1 % (0.00-10.9); Hematocrit 32.9 VOL% (42.0-52.0); Hemoglobin 11.9 GM/DL (14.0-18.0); Immature Granulocytes % 0.9 %; Immature Granulocytes Absolute 0.15 #; Lymphocytes # 0.6 10*3/uL (1.4-4.0); Lymphocytes % 3.8 % (21.2-54.2); Mean Corpuscular HGB Conc 36.2 GM/DL (32-36); Mean Corpuscular Hemoglobin 30 PG (27-34); Mean Corpuscular Volume 84.1 FL (87-102); Mean Platelet Volume 9.6 FL (9.6-12.0); Monocytes # 1.3 10*3/uL (0.11-0.8); Monocytes % 7.7 % (1.7-12.7); Neutrophils # 14.4 10*3/uL (1.4-7.4); Neutrophils % 87.3 % (38.7-73.9); Platelet Count 319 T/CUMM (130-400); Red Blood Count 3.91 MC/CUMM (3.8-5.5); Red Cell Distribution Width 12.3 % (9.3-17.3); White Blood Count 16.5 T/CUMM (4-12)
[2018-04-27] MEDS ORDERED: CEFEPIME 2,000 MG in SODIUM CHLORIDE 0.9% 100 ML IV STA (22:04)
[2018-04-27] MEDS ORDERED: VANCOMYCIN INJ 1,000 MG in SODIUM CHLORIDE 0.9% 250 ML IV STA (22:05)
[2018-04-27 22:18] LABS: ABG Base Excess 6.4 MMOL/L (-2.5-2.5); ABG HCO3 30.2 MMOL/L (20-26); ABG Oxygen Saturation 96.6 % (95-100); ABG PCO2 52.4 MM HG (35-48); ABG PH 7.402 (7.35-7.45); ABG PO2 89.6 MM HG (80-95); ABG TCO2 28.8 MMOL/L (23-27)
[2018-04-27 22:21] LABS: Apearance,Urine CLEAR (Clear); Bacteria,Urine Occasional /HPF (Few); Bilirubin,Urine Negative (Negative); Blood, Urine Negative (Negative); Glucose,Urine (UA) 150 mg/dL (Negative); Ketones,Urine Negative (Negative); Nitrite,Urine Negative (Negative); Protein,Urine Negative; RBC,Urine <1 /HPF (0-4); Urine Color Colorless (Yellow); Urine Specific Gravity 1.004 (1.001-1.035); Urine Urobilinogen < 2.0 EU/DL (0.2-1.0); WBC,Urine 3 /HPF (0-6)
[2018-04-27 22:29] LABS: Alanine Aminotransferase 10 U/L (16-61); Albumin 2.3 G/DL (3.4-5.0); Alkaline Phosphatase 65 U/L (45-117); Aspartate Amino Transferase 26 U/L (0-37); Bilirubin,Total < 0.39 MG/DL (0.2-1.0); Blood Urea Nitrogen 21 MG/DL (7-18); Calcium 7.7 MG/DL (8.5-10.1); Glucose 286 MG/DL (74-106); Osmolality,Calculated 256.1 MOS/KG (273-304); Potassium 3.8 MMOL/L (3.5-5.1); Sodium 121 MMOL/L (136-145); Total Protein 6.6 G/DL (6.4-8.3); Troponin I Only < 0.015 NG/ML (0.00-0.045)
[2018-04-27 22:55] LABS: Band Neutrophils 4 % (0-10); Lymphocytes 5 % (20-55); Segmented Neutrophils 85 % (50-85); Total Cells Counted 100
[2018-04-27 22:56] LABS: Platelet Estimate Normal; Polychromasia Few
[2018-04-27] MEDS ORDERED: ONDANSETRON 4 MG/2 ML VIAL IV PRN (22:57)
[2018-04-27] MEDS ORDERED: DEXTROSE 5% NACL 0.9% 1,000 ML IV SCH (23:00)
[2018-04-28] MEDS ORDERED: PHENYLEPHRINE DRIP 40 MG/250 ML PREMIX IV ONE (00:23)
[2018-04-28] MEDS: PHENYLEPHRINE DRIP 40 MG/250 ML PREMIX IV PRN ×3 (00:30→22:12)
[2018-04-28 04:04] LABS: ABG Base Excess 7.6 MMOL/L (-2.5-2.5); ABG HCO3 31.4 MMOL/L (20-26); ABG Oxygen Saturation 99.2 % (95-100); ABG PCO2 39.4 MM HG (35-48); ABG PH 7.507 (7.35-7.45)
[2018-04-28 04:14] LABS: Basophils % 0.2 % (0.0-0.8); Hematocrit 28.7 VOL% (42.0-52.0); Hemoglobin 10.6 GM/DL (14.0-18.0); Immature Granulocytes % 0.8 %; Immature Granulocytes Absolute 0.11 #; Lymphocytes # 0.8 10*3/uL (1.4-4.0); Lymphocytes % 5.6 % (21.2-54.2); Mean Corpuscular HGB Conc 36.9 GM/DL (32-36); Mean Corpuscular Hemoglobin 31 PG (27-34); Mean Corpuscular Volume 82.7 FL (87-102); Monocytes # 0.9 10*3/uL (0.11-0.8); Monocytes % 6.1 % (1.7-12.7); Neutrophils # 12.6 10*3/uL (1.4-7.4); Neutrophils % 87.3 % (38.7-73.9); Platelet Count 300 T/CUMM (130-400); Red Blood Count 3.47 MC/CUMM (3.8-5.5); Red Cell Distribution Width 12.4 % (9.3-17.3); White Blood Count 14.5 T/CUMM (4-12)
[2018-04-28 04:59] LABS: Calcium 7.7 MG/DL (8.5-10.1); Osmolality,Calculated 261.8 MOS/KG (273-304); Potassium 3.8 MMOL/L (3.5-5.1)
[2018-04-28] MEDS ORDERED: LIDOCAINE 1% 20 ML VIAL MISC INJ ONE (06:49)
[2018-04-28] MEDS: SODIUM CHLORIDE 0.9% 1,000 ML IV SCH (07:01)
[2018-04-28] MEDS ORDERED: cefTRIAXone 1,000 MG VIAL IV SCH (08:30)
[2018-04-28] MEDS ORDERED: cefTRIAXone 1,000 MG in SYRINGE 1 EACH IV SCH (08:30)
[2018-04-28] MEDS ORDERED: PANTOPRAZOLE 40 MG TABLET PO SCH (09:00)
[2018-04-28] MEDS ORDERED: PANTOPRAZOLE 40 MG VIAL IV ONE (09:27)
[2018-04-28] MEDS: PROPOFOL 1,000 MG/100 ML BOTTLE IV SCH ×2 (10:15→20:25)
[2018-04-28] MEDS: SOTALOL 80 MG TABLET NG SCH ×2 (10:32→20:30)
[2018-04-28] MEDS: CALCITONIN NASAL SPRAY 3.7 ML BOTTLE ONE NARE SCH (10:33)
[2018-04-28] MEDS: levETIRAcetam LIQUID 100 MG/ML 30 ML/BOTTLE PO SCH ×2 (10:33→20:31)
[2018-04-28] MEDS: PANTOPRAZOLE 40 MG VIAL IV SCH (11:59)
[2018-04-28] MEDS: DILTIAZEM 60 MG TABLET PO SCH ×2 (12:20→18:10)
[2018-04-28] MEDS: CALCIUM (CARBONATE)/VITAMIN D 600 MG-400 UNIT TABLET PO SCH (20:30)
[2018-04-29] MEDS: DILTIAZEM 60 MG TABLET PO SCH ×2 (00:56→06:48)
[2018-04-29] MEDS: SODIUM CHLORIDE 0.9% 1,000 ML IV SCH (03:01)
[2018-04-29 03:39] LABS: ABG Base Excess 9.6 MMOL/L (-2.5-2.5); ABG HCO3 33.4 MMOL/L (20-26); ABG Oxygen Saturation 99.5 % (95-100); ABG PH 7.496 (7.35-7.45); ABG TCO2 30.3 MMOL/L (23-27); Allen Test Positive; Pt O2 Delivery Device Ventilator
[2018-04-29 06:00] LABS: Basophils # 0.1 10*3/uL (0.0-0.2); Basophils % 0.6 % (0.0-0.8); Eosinophils # 0.2 10*3/uL (0.0-0.87); Eosinophils % 1.5 % (0.00-10.9); Hematocrit 29.3 VOL% (42.0-52.0); Hemoglobin 10.5 GM/DL (14.0-18.0); Immature Granulocytes % 1.1 %; Immature Granulocytes Absolute 0.14 #; Lymphocytes # 1.2 10*3/uL (1.4-4.0); Lymphocytes % 9.3 % (21.2-54.2); Mean Corpuscular HGB Conc 35.8 GM/DL (32-36); Mean Corpuscular Hemoglobin 30 PG (27-34); Mean Platelet Volume 10.5 FL (9.6-12.0); Monocytes # 1.3 10*3/uL (0.11-0.8); Monocytes % 10.1 % (1.7-12.7); Neutrophils # 9.6 10*3/uL (1.4-7.4); Neutrophils % 77.4 % (38.7-73.9); Platelet Count 374 T/CUMM (130-400); Red Blood Count 3.49 MC/CUMM (3.8-5.5); Red Cell Distribution Width 12.9 % (9.3-17.3); White Blood Count 12.4 T/CUMM (4-12)
[2018-04-29 06:18] LABS: Calcium 8.4 MG/DL (8.5-10.1); Osmolality,Calculated 284.4 MOS/KG (273-304); Potassium 3.3 MMOL/L (3.5-5.1)
[2018-04-29 06:23] LABS: Free T4 (Free Thyroxine) 1.53 NG/DL (0.76-1.46); Thyroid Stimulating Hormone 0.763 uIU/ml (0.358-3.74)
[2018-04-29] MEDS: CEFEPIME 1,000 MG in SYRINGE 1 EACH IV SCH ×2 (07:55→20:19)
[2018-04-29] MEDS: CLINDAMYCIN INJ 600 MG in PREMIX 1 EACH IV SCH ×3 (07:55→23:36)
[2018-04-29] MEDS: POTASSIUM CHLORIDE RIDER 10 MEQ in PREMIX 1 EACH IV PRN ×2 (07:56→15:35)
[2018-04-29] MEDS: SOTALOL 80 MG TABLET NG SCH (08:01)
[2018-04-29] MEDS: levETIRAcetam LIQUID 100 MG/ML 30 ML/BOTTLE PO SCH ×2 (08:01→21:23)
[2018-04-29] MEDS: FUROSEMIDE 20 MG/2 ML VIAL IV SCH (08:01)
[2018-04-29] MEDS: CALCITONIN NASAL SPRAY 3.7 ML BOTTLE ONE NARE SCH (08:02)
[2018-04-29] MEDS: PANTOPRAZOLE 40 MG VIAL IV SCH (08:02)
[2018-04-29 08:26] LABS: ABG Base Excess 8.3 MMOL/L (-2.5-2.5); ABG HCO3 32.1 MMOL/L (20-26); ABG Oxygen Saturation 99.6 % (95-100); ABG PCO2 44.5 MM HG (35-48); ABG PH 7.476 (7.35-7.45); ABG TCO2 29.5 MMOL/L (23-27)
[2018-04-29] MEDS ORDERED: DOPamine 800 MG/250 ML PREMIX IV PRN (10:00)
[2018-04-29] MEDS: PHENYLEPHRINE DRIP 40 MG/250 ML PREMIX IV PRN (10:09)
[2018-04-29] MEDS ORDERED: SODIUM CHLORIDE 0.45% 1,000 ML IV SCH (12:30)
[2018-04-29] MEDS: ASPIRIN 325 MG TABLET PO SCH (13:03)
[2018-04-29] MEDS: ASCORBIC ACID 500 MG TABLET PO SCH (13:03)
[2018-04-29] MEDS: PROPOFOL 1,000 MG/100 ML BOTTLE IV SCH ×3 (19:13→23:36)
[2018-04-29] MEDS: CALCIUM (CARBONATE)/VITAMIN D 600 MG-400 UNIT TABLET PO SCH (21:22)
[2018-04-30 04:33] LABS: ABG Base Excess 7.3 MMOL/L (-2.5-2.5); ABG HCO3 31.1 MMOL/L (20-26); ABG Oxygen Saturation 99.6 % (95-100); ABG PCO2 42.7 MM HG (35-48); ABG PH 7.478 (7.35-7.45); ABG TCO2 28.2 MMOL/L (23-27); Allen Test Positive; Pt O2 Delivery Device Ventilator
[2018-04-30 04:38] LABS: Basophils # 0.1 10*3/uL (0.0-0.2); Basophils % 0.9 % (0.0-0.8); Eosinophils # 0.4 10*3/uL (0.0-0.87); Eosinophils % 2.7 % (0.00-10.9); Hematocrit 30.6 VOL% (42.0-52.0); Hemoglobin 10.9 GM/DL (14.0-18.0); Immature Granulocytes % 1.2 %; Immature Granulocytes Absolute 0.15 #; Lymphocytes # 1.5 10*3/uL (1.4-4.0); Lymphocytes % 11.6 % (21.2-54.2); Mean Corpuscular HGB Conc 35.6 GM/DL (32-36); Mean Corpuscular Hemoglobin 30 PG (27-34); Mean Corpuscular Volume 85.5 FL (87-102); Mean Platelet Volume 10.1 FL (9.6-12.0); Monocytes # 1.3 10*3/uL (0.11-0.8); Monocytes % 10.2 % (1.7-12.7); NRBC # 0.02 10*3/uL; Neutrophils # 9.3 10*3/uL (1.4-7.4); Neutrophils % 73.4 % (38.7-73.9); Platelet Count 436 T/CUMM (130-400); Red Blood Count 3.58 MC/CUMM (3.8-5.5); Red Cell Distribution Width 13.2 % (9.3-17.3); White Blood Count 12.7 T/CUMM (4-12)
[2018-04-30] MEDS: CLINDAMYCIN INJ 600 MG in PREMIX 1 EACH IV SCH ×2 (08:12→15:26)
[2018-04-30] MEDS: CEFEPIME 1,000 MG in SYRINGE 1 EACH IV SCH ×2 (08:13→22:06)
[2018-04-30] MEDS: PANTOPRAZOLE 40 MG VIAL IV SCH (08:13)
[2018-04-30] MEDS: CALCITONIN NASAL SPRAY 3.7 ML BOTTLE ONE NARE SCH (08:13)
[2018-04-30] MEDS: ASPIRIN 325 MG TABLET PO SCH (08:13)
[2018-04-30] MEDS: FUROSEMIDE 20 MG/2 ML VIAL IV SCH (08:13)
[2018-04-30] MEDS: MAGNESIUM OXIDE 400 MG TABLET PO SCH (08:13)
[2018-04-30] MEDS: ASCORBIC ACID 500 MG TABLET PO SCH (08:13)
[2018-04-30] MEDS: levETIRAcetam LIQUID 100 MG/ML 30 ML/BOTTLE PO SCH ×2 (08:14→22:03)
[2018-04-30 08:18] LABS: Calcium 8.4 MG/DL (8.5-10.1); Osmolality,Calculated 285.4 MOS/KG (273-304); Potassium 3.7 MMOL/L (3.5-5.1)
[2018-04-30] MEDS ORDERED: DEXTROSE 50% 25 GM/50 ML VIAL IV PRN (09:32)
[2018-04-30] MEDS ORDERED: GLUCAGON 1 MG VIAL IM PRN (09:32)
[2018-04-30] MEDS: INSULIN LISPRO 100 UNIT/ML SUBCUT SCH ×3 (12:31→23:56)
[2018-04-30] MEDS: PROPOFOL 1,000 MG/100 ML BOTTLE IV SCH (13:41)
[2018-04-30] MEDS: CALCIUM (CARBONATE)/VITAMIN D 600 MG-400 UNIT TABLET PO SCH (22:03)
[2018-05-01] MEDS: CLINDAMYCIN INJ 600 MG in PREMIX 1 EACH IV SCH ×4 (00:04→23:54)
[2018-05-01 04:18] LABS: ABG Base Excess 9.9 MMOL/L (-2.5-2.5); ABG HCO3 34.4 MMOL/L (20-26); ABG Oxygen Saturation 98.6 % (95-100); ABG PCO2 45.6 MM HG (35-48); ABG PH 7.495 (7.35-7.45); ABG PO2 145.9 MM HG (80-95); ABG TCO2 35.8 MMOL/L (23-27); Pt O2 Delivery Device Ventilator
[2018-05-01 04:44] LABS: Basophils # 0.1 10*3/uL (0.0-0.2); Basophils % 0.8 % (0.0-0.8); Eosinophils # 0.6 10*3/uL (0.0-0.87); Eosinophils % 5.3 % (0.00-10.9); Hematocrit 31.3 VOL% (42.0-52.0); Immature Granulocytes % 0.8 %; Immature Granulocytes Absolute 0.08 #; Lymphocytes # 1.3 10*3/uL (1.4-4.0); Lymphocytes % 12.3 % (21.2-54.2); Mean Corpuscular HGB Conc 35.1 GM/DL (32-36); Mean Corpuscular Hemoglobin 30 PG (27-34); Mean Corpuscular Volume 85.3 FL (87-102); Mean Platelet Volume 9.5 FL (9.6-12.0); Monocytes % 9.2 % (1.7-12.7); Neutrophils # 7.6 10*3/uL (1.4-7.4); Neutrophils % 71.6 % (38.7-73.9); Platelet Count 493 T/CUMM (130-400); Red Blood Count 3.67 MC/CUMM (3.8-5.5); White Blood Count 10.7 T/CUMM (4-12)
[2018-05-01 05:04] LABS: Calcium 8.4 MG/DL (8.5-10.1); Osmolality,Calculated 278.8 MOS/KG (273-304); Potassium 3.5 MMOL/L (3.5-5.1)
[2018-05-01] MEDS: INSULIN LISPRO 100 UNIT/ML SUBCUT SCH ×4 (05:56→23:47)
[2018-05-01] MEDS: POTASSIUM CHLORIDE RIDER 10 MEQ in PREMIX 1 EACH IV PRN ×2 (07:53→10:17)
[2018-05-01] MEDS: CEFEPIME 1,000 MG in SYRINGE 1 EACH IV SCH ×2 (07:54→21:24)
[2018-05-01] MEDS: FUROSEMIDE 20 MG/2 ML VIAL IV SCH (08:00)
[2018-05-01] MEDS: CALCITONIN NASAL SPRAY 3.7 ML BOTTLE ONE NARE SCH (08:00)
[2018-05-01] MEDS: levETIRAcetam LIQUID 100 MG/ML 30 ML/BOTTLE PO SCH ×2 (08:00→21:36)
[2018-05-01] MEDS: MAGNESIUM OXIDE 400 MG TABLET PO SCH (08:00)
[2018-05-01] MEDS: ASPIRIN 325 MG TABLET PO SCH (08:00)
[2018-05-01] MEDS: ASCORBIC ACID 500 MG TABLET PO SCH (08:00)
[2018-05-01] MEDS: PANTOPRAZOLE 40 MG VIAL IV SCH (08:00)
[2018-05-01] MEDS: PROPOFOL 1,000 MG/100 ML BOTTLE IV SCH (10:16)
[2018-05-01] MEDS ORDERED: ACETAMINOPHEN 325 MG TABLET PO PRN (10:38)
[2018-05-01] MEDS: CALCIUM (CARBONATE)/VITAMIN D 600 MG-400 UNIT TABLET PO SCH (21:36)
[2018-05-02 04:42] LABS: ABG Base Excess 9.5 MMOL/L (-2.5-2.5); ABG HCO3 33.8 MMOL/L (20-26); ABG Oxygen Saturation 98.7 % (95-100); ABG PCO2 44.8 MM HG (35-48); ABG PH 7.496 (7.35-7.45); ABG PO2 158.5 MM HG (80-95); ABG TCO2 35.2 MMOL/L (23-27); Allen Test Positive; Pt O2 Delivery Device Ventilator
[2018-05-02] MEDS: PHENYLEPHRINE DRIP 40 MG/250 ML PREMIX IV PRN (04:46)
[2018-05-02 05:40] LABS: Prealbumin 10.2 MG/DL (20-40)
[2018-05-02] MEDS: INSULIN LISPRO 100 UNIT/ML SUBCUT SCH ×4 (06:25→23:23)
[2018-05-02] MEDS: PROPOFOL 1,000 MG/100 ML BOTTLE IV SCH (06:43)
[2018-05-02] MEDS: CEFEPIME 1,000 MG in SYRINGE 1 EACH IV SCH ×2 (08:57→20:01)
[2018-05-02 09:02] LABS: ABG Base Excess 8.8 MMOL/L (-2.5-2.5); ABG HCO3 34.1 MMOL/L (20-26); ABG Oxygen Saturation 98.1 % (95-100); ABG PCO2 49.6 MM HG (35-48); ABG PH 7.455 (7.35-7.45); ABG PO2 121.2 MM HG (80-95); ABG TCO2 35.6 MMOL/L (23-27)
[2018-05-02] MEDS: FUROSEMIDE 20 MG/2 ML VIAL IV SCH (09:06)
[2018-05-02] MEDS: ASPIRIN 325 MG TABLET PO SCH (09:07)
[2018-05-02] MEDS: CLINDAMYCIN INJ 600 MG in PREMIX 1 EACH IV SCH ×3 (09:07→23:02)
[2018-05-02] MEDS: ASCORBIC ACID 500 MG TABLET PO SCH (09:07)
[2018-05-02] MEDS: MAGNESIUM OXIDE 400 MG TABLET PO SCH (09:07)
[2018-05-02] MEDS: PANTOPRAZOLE 40 MG VIAL IV SCH (09:07)
[2018-05-02] MEDS: levETIRAcetam LIQUID 100 MG/ML 30 ML/BOTTLE PO SCH ×2 (09:08→21:16)
[2018-05-02] MEDS: CALCITONIN NASAL SPRAY 3.7 ML BOTTLE ONE NARE SCH (09:08)
[2018-05-02 14:08] LABS: ABG Base Excess 10.4 MMOL/L (-2.5-2.5); ABG PCO2 52.3 MM HG (35-48); ABG PH 7.456 (7.35-7.45); ABG TCO2 37.6 MMOL/L (23-27)
[2018-05-02] MEDS ORDERED: AMIODARONE INJ 150 MG in DEXTROSE 5% 100 ML IV ONE (15:32)
[2018-05-02] MEDS ORDERED: AMIODARONE INJ 450 MG in DEXTROSE 5% 241 ML IV SCH (16:00)
[2018-05-02 17:09] LABS: Basophils # 0.1 10*3/uL (0.0-0.2); Basophils % 0.6 % (0.0-0.8); Eosinophils # 0.6 10*3/uL (0.0-0.87); Eosinophils % 3.9 % (0.00-10.9); Hematocrit 32.8 VOL% (42.0-52.0); Hemoglobin 11.3 GM/DL (14.0-18.0); Immature Granulocytes % 0.8 %; Immature Granulocytes Absolute 0.13 #; Lymphocytes # 1.7 10*3/uL (1.4-4.0); Lymphocytes % 10.7 % (21.2-54.2); Mean Corpuscular HGB Conc 34.5 GM/DL (32-36); Mean Corpuscular Hemoglobin 30 PG (27-34); Mean Corpuscular Volume 87.2 FL (87-102); Mean Platelet Volume 9.4 FL (9.6-12.0); Monocytes # 1.1 10*3/uL (0.11-0.8); Monocytes % 6.9 % (1.7-12.7); Neutrophils # 11.9 10*3/uL (1.4-7.4); Neutrophils % 77.1 % (38.7-73.9); Platelet Count 515 T/CUMM (130-400); Red Blood Count 3.76 MC/CUMM (3.8-5.5); White Blood Count 15.5 T/CUMM (4-12)
[2018-05-02] MEDS: CALCIUM (CARBONATE)/VITAMIN D 600 MG-400 UNIT TABLET PO SCH (21:15)
[2018-05-03] MEDS: AMIODARONE INJ 450 MG in DEXTROSE 5% 241 ML IV SCH ×2 (01:35→15:10)
[2018-05-03] MEDS: INSULIN LISPRO 100 UNIT/ML SUBCUT SCH ×3 (05:40→18:02)
[2018-05-03 05:57] LABS: Basophils # 0.1 10*3/uL (0.0-0.2); Basophils % 0.9 % (0.0-0.8); Eosinophils # 0.8 10*3/uL (0.0-0.87); Eosinophils % 5.7 % (0.00-10.9); Hemoglobin 11.7 GM/DL (14.0-18.0); Immature Granulocytes % 0.7 %; Lymphocytes # 1.6 10*3/uL (1.4-4.0); Lymphocytes % 11.4 % (21.2-54.2); Mean Corpuscular HGB Conc 34.4 GM/DL (32-36); Mean Corpuscular Hemoglobin 30 PG (27-34); Mean Corpuscular Volume 87.2 FL (87-102); Mean Platelet Volume 9.9 FL (9.6-12.0); Monocytes # 0.8 10*3/uL (0.11-0.8); Neutrophils # 10.4 10*3/uL (1.4-7.4); Neutrophils % 75.3 % (38.7-73.9); Platelet Count 490 T/CUMM (130-400); White Blood Count 13.8 T/CUMM (4-12)
[2018-05-03 06:12] LABS: Calcium 8.6 MG/DL (8.5-10.1); Potassium 4.1 MMOL/L (3.5-5.1)
[2018-05-03 06:24] LABS: Calcium 8.5 MG/DL (8.5-10.1); Osmolality,Calculated 279.8 MOS/KG (273-304); Potassium 4.1 MMOL/L (3.5-5.1)
[2018-05-03] MEDS: PANTOPRAZOLE 40 MG VIAL IV SCH (09:45)
[2018-05-03] MEDS: CEFEPIME 1,000 MG in SYRINGE 1 EACH IV SCH ×2 (09:45→21:34)
[2018-05-03] MEDS: FUROSEMIDE 20 MG TABLET PO SCH (09:46)
[2018-05-03] MEDS: CALCITONIN NASAL SPRAY 3.7 ML BOTTLE ONE NARE SCH (09:46)
[2018-05-03] MEDS: MAGNESIUM OXIDE 400 MG TABLET PO SCH (09:46)
[2018-05-03] MEDS: ASPIRIN 325 MG TABLET PO SCH (09:46)
[2018-05-03] MEDS: ASCORBIC ACID 500 MG TABLET PO SCH (09:46)
[2018-05-03] MEDS: CLINDAMYCIN INJ 600 MG in PREMIX 1 EACH IV SCH ×3 (09:48→23:41)
[2018-05-03] MEDS: levETIRAcetam LIQUID 100 MG/ML 30 ML/BOTTLE PO SCH ×2 (10:43→21:34)
[2018-05-03] MEDS ORDERED: AMIODARONE 200 MG TABLET PO SCH (21:00)
[2018-05-03] MEDS: AMIODARONE 200 MG TABLET PER TUBE SCH (21:34)
[2018-05-03] MEDS: CALCIUM (CARBONATE)/VITAMIN D 600 MG-400 UNIT TABLET PO SCH (21:34)
[2018-05-04] MEDS: INSULIN LISPRO 100 UNIT/ML SUBCUT SCH ×5 (01:02→23:20)
[2018-05-04 03:36] LABS: Basophils # 0.1 10*3/uL (0.0-0.2); Basophils % 0.8 % (0.0-0.8); Eosinophils # 0.5 10*3/uL (0.0-0.87); Eosinophils % 2.9 % (0.00-10.9); Hematocrit 34.4 VOL% (42.0-52.0); Hemoglobin 12.2 GM/DL (14.0-18.0); Immature Granulocytes % 0.7 %; Immature Granulocytes Absolute 0.12 #; Lymphocytes # 1.4 10*3/uL (1.4-4.0); Lymphocytes % 8.5 % (21.2-54.2); Mean Corpuscular HGB Conc 35.5 GM/DL (32-36); Mean Corpuscular Hemoglobin 30 PG (27-34); Mean Corpuscular Volume 85.1 FL (87-102); Mean Platelet Volume 9.3 FL (9.6-12.0); Monocytes % 5.8 % (1.7-12.7); Neutrophils # 13.7 10*3/uL (1.4-7.4); Neutrophils % 81.3 % (38.7-73.9); Platelet Count 600 T/CUMM (130-400); Red Blood Count 4.04 MC/CUMM (3.8-5.5); Red Cell Distribution Width 13.1 % (9.3-17.3); White Blood Count 16.9 T/CUMM (4-12)
[2018-05-04 04:03] LABS: Osmolality,Calculated 275.7 MOS/KG (273-304)
[2018-05-04 04:04] LABS: Calcium 9.2 MG/DL (8.5-10.1); Osmolality,Calculated 277.5 MOS/KG (273-304)
[2018-05-04] MEDS: PANTOPRAZOLE 40 MG VIAL IV SCH (07:59)
[2018-05-04] MEDS: AMIODARONE 200 MG TABLET PER TUBE SCH ×3 (08:00→20:07)
[2018-05-04] MEDS: FUROSEMIDE 20 MG TABLET PO SCH (08:00)
[2018-05-04] MEDS: ASPIRIN 325 MG TABLET PO SCH (08:00)
[2018-05-04] MEDS: MAGNESIUM OXIDE 400 MG TABLET PO SCH (08:00)
[2018-05-04] MEDS: CEFEPIME 1,000 MG in SYRINGE 1 EACH IV SCH ×2 (08:00→20:06)
[2018-05-04] MEDS: levETIRAcetam LIQUID 100 MG/ML 30 ML/BOTTLE PO SCH ×2 (08:01→20:07)
[2018-05-04] MEDS: CALCITONIN NASAL SPRAY 3.7 ML BOTTLE ONE NARE SCH (08:01)
[2018-05-04] MEDS: ASCORBIC ACID 500 MG TABLET PO SCH (08:01)
[2018-05-04] MEDS: CLINDAMYCIN INJ 600 MG in PREMIX 1 EACH IV SCH ×3 (08:02→23:20)
[2018-05-04] MEDS: LOSARTAN 25 MG TABLET PO SCH (13:06)
[2018-05-04] MEDS: CALCIUM (CARBONATE)/VITAMIN D 600 MG-400 UNIT TABLET PO SCH (20:07)
[2018-05-05 03:48] LABS: Basophils # 0.2 10*3/uL (0.0-0.2); Eosinophils # 0.3 10*3/uL (0.0-0.87); Eosinophils % 1.9 % (0.00-10.9); Hematocrit 37.9 VOL% (42.0-52.0); Hemoglobin 12.7 GM/DL (14.0-18.0); Immature Granulocytes % 0.9 %; Immature Granulocytes Absolute 0.15 #; Lymphocytes # 1.8 10*3/uL (1.4-4.0); Lymphocytes % 10.7 % (21.2-54.2); Mean Corpuscular HGB Conc 33.5 GM/DL (32-36); Mean Corpuscular Hemoglobin 29 PG (27-34); Mean Corpuscular Volume 87.3 FL (87-102); Mean Platelet Volume 9.3 FL (9.6-12.0); Monocytes % 6.1 % (1.7-12.7); Neutrophils # 13.3 10*3/uL (1.4-7.4); Neutrophils % 79.4 % (38.7-73.9); Platelet Count 558 T/CUMM (130-400); Red Blood Count 4.34 MC/CUMM (3.8-5.5); Red Cell Distribution Width 13.2 % (9.3-17.3); White Blood Count 16.8 T/CUMM (4-12)
[2018-05-05 04:06] LABS: Calcium 8.9 MG/DL (8.5-10.1); Osmolality,Calculated 275.7 MOS/KG (273-304); Potassium 4.1 MMOL/L (3.5-5.1)
[2018-05-05 04:11] LABS: Prealbumin 15.2 MG/DL (20-40)
[2018-05-05] MEDS: INSULIN LISPRO 100 UNIT/ML SUBCUT SCH ×3 (06:08→19:06)
[2018-05-05] MEDS: CLINDAMYCIN INJ 600 MG in PREMIX 1 EACH IV SCH ×3 (08:49→23:45)
[2018-05-05] MEDS: PANTOPRAZOLE 40 MG VIAL IV SCH (08:51)
[2018-05-05] MEDS: CEFEPIME 1,000 MG in SYRINGE 1 EACH IV SCH ×2 (08:51→21:16)
[2018-05-05] MEDS: MAGNESIUM OXIDE 400 MG TABLET PO SCH (08:52)
[2018-05-05] MEDS: ASCORBIC ACID 500 MG TABLET PO SCH (08:52)
[2018-05-05] MEDS: FUROSEMIDE 20 MG TABLET PO SCH (08:52)
[2018-05-05] MEDS: levETIRAcetam LIQUID 100 MG/ML 30 ML/BOTTLE PO SCH ×2 (08:52→21:19)
[2018-05-05] MEDS: ASPIRIN 325 MG TABLET PO SCH (08:52)
[2018-05-05] MEDS: LOSARTAN 25 MG TABLET PO SCH (08:52)
[2018-05-05] MEDS: CARBIDOPA/LEVODOPA 25-100 MG TABLET PO SCH ×3 (08:52→21:22)
[2018-05-05] MEDS: CALCITONIN NASAL SPRAY 3.7 ML BOTTLE ONE NARE SCH (08:52)
[2018-05-05] MEDS: AMIODARONE 200 MG TABLET PER TUBE SCH ×2 (08:52→21:20)
[2018-05-05] MEDS: CALCIUM (CARBONATE)/VITAMIN D 600 MG-400 UNIT TABLET PO SCH (21:19)
[2018-05-06] MEDS: INSULIN LISPRO 100 UNIT/ML SUBCUT SCH ×4 (01:24→18:08)
[2018-05-06 05:19] LABS: Basophils # 0.2 10*3/uL (0.0-0.2); Basophils % 1.3 % (0.0-0.8); Eosinophils # 0.6 10*3/uL (0.0-0.87); Eosinophils % 4.9 % (0.00-10.9); Hematocrit 33.2 VOL% (42.0-52.0); Hemoglobin 11.7 GM/DL (14.0-18.0); Immature Granulocytes % 1.1 %; Immature Granulocytes Absolute 0.13 #; Lymphocytes # 1.8 10*3/uL (1.4-4.0); Lymphocytes % 14.8 % (21.2-54.2); Mean Corpuscular HGB Conc 35.2 GM/DL (32-36); Mean Corpuscular Hemoglobin 30 PG (27-34); Mean Corpuscular Volume 85.1 FL (87-102); Mean Platelet Volume 9.5 FL (9.6-12.0); Monocytes # 1.1 10*3/uL (0.11-0.8); Monocytes % 9.4 % (1.7-12.7); Neutrophils # 8.2 10*3/uL (1.4-7.4); Neutrophils % 68.5 % (38.7-73.9); Platelet Count 573 T/CUMM (130-400); Red Cell Distribution Width 13.3 % (9.3-17.3); White Blood Count 11.9 T/CUMM (4-12)
[2018-05-06 05:55] LABS: Osmolality,Calculated 280.7 MOS/KG (273-304); Potassium 4.4 MMOL/L (3.5-5.1)
[2018-05-06] MEDS: PANTOPRAZOLE 40 MG VIAL IV SCH (08:32)
[2018-05-06] MEDS: CEFEPIME 1,000 MG in SYRINGE 1 EACH IV SCH ×2 (08:35→20:05)
[2018-05-06] MEDS: CLINDAMYCIN INJ 600 MG in PREMIX 1 EACH IV SCH ×2 (08:38→16:03)
[2018-05-06] MEDS: ASPIRIN 325 MG TABLET PO SCH (08:41)
[2018-05-06] MEDS: MAGNESIUM OXIDE 400 MG TABLET PO SCH (08:42)
[2018-05-06] MEDS: ASCORBIC ACID 500 MG TABLET PO SCH (08:42)
[2018-05-06] MEDS: AMIODARONE 200 MG TABLET PER TUBE SCH ×2 (08:42→20:04)
[2018-05-06] MEDS: LOSARTAN 25 MG TABLET PO SCH (08:42)
[2018-05-06] MEDS: FUROSEMIDE 20 MG TABLET PO SCH (08:42)
[2018-05-06] MEDS: CARBIDOPA/LEVODOPA 25-100 MG TABLET PO SCH ×3 (08:42→20:04)
[2018-05-06] MEDS: CALCITONIN NASAL SPRAY 3.7 ML BOTTLE ONE NARE SCH (10:24)
[2018-05-06] MEDS: levETIRAcetam LIQUID 100 MG/ML 30 ML/BOTTLE PO SCH ×2 (10:24→20:04)
[2018-05-06] MEDS: CALCIUM (CARBONATE)/VITAMIN D 600 MG-400 UNIT TABLET PO SCH (20:03)
[2018-05-06] MEDS ORDERED: FUROSEMIDE 20 MG/2 ML VIAL IV ONE (23:08)
[2018-05-06] MEDS: METOPROLOL TARTRATE 25 MG TABLET PO SCH (23:20)
[2018-05-07] MEDS: INSULIN LISPRO 100 UNIT/ML SUBCUT SCH ×4 (00:04→19:23)
[2018-05-07] MEDS: CLINDAMYCIN INJ 600 MG in PREMIX 1 EACH IV SCH ×4 (00:08→23:25)
[2018-05-07] MEDS: ALBUTEROL/IPRATROPIUM 3 ML NEB RESP TX SCH ×4 (01:31→19:10)
[2018-05-07 04:37] LABS: Calcium 8.9 MG/DL (8.5-10.1); Osmolality,Calculated 277.1 MOS/KG (273-304); Potassium 4.3 MMOL/L (3.5-5.1)
[2018-05-07 04:46] LABS: Basophils # 0.1 10*3/uL (0.0-0.2); Basophils % 1.2 % (0.0-0.8); Eosinophils # 0.5 10*3/uL (0.0-0.87); Eosinophils % 4.2 % (0.00-10.9); Hematocrit 34.5 VOL% (42.0-52.0); Hemoglobin 11.9 GM/DL (14.0-18.0); Immature Granulocytes % 0.8 %; Immature Granulocytes Absolute 0.09 #; Lymphocytes # 1.5 10*3/uL (1.4-4.0); Lymphocytes % 12.3 % (21.2-54.2); Mean Corpuscular HGB Conc 34.5 GM/DL (32-36); Mean Corpuscular Hemoglobin 30 PG (27-34); Mean Platelet Volume 9.9 FL (9.6-12.0); Monocytes % 8.2 % (1.7-12.7); Neutrophils # 8.7 10*3/uL (1.4-7.4); Neutrophils % 73.3 % (38.7-73.9); Platelet Count 582 T/CUMM (130-400); Red Blood Count 4.01 MC/CUMM (3.8-5.5); Red Cell Distribution Width 13.4 % (9.3-17.3); White Blood Count 11.9 T/CUMM (4-12)
[2018-05-07] MEDS: CARBIDOPA/LEVODOPA 25-100 MG TABLET PO SCH ×3 (09:35→21:30)
[2018-05-07] MEDS: FUROSEMIDE 20 MG TABLET PO SCH (09:35)
[2018-05-07] MEDS: ASPIRIN 325 MG TABLET PO SCH (09:35)
[2018-05-07] MEDS: AMIODARONE 200 MG TABLET PO SCH (09:35)
[2018-05-07] MEDS: METOPROLOL TARTRATE 25 MG TABLET PO SCH ×2 (09:35→21:30)
[2018-05-07] MEDS: MAGNESIUM OXIDE 400 MG TABLET PO SCH (09:35)
[2018-05-07] MEDS: LOSARTAN 25 MG TABLET PO SCH (09:35)
[2018-05-07] MEDS: levETIRAcetam LIQUID 100 MG/ML 30 ML/BOTTLE PO SCH ×2 (09:36→21:30)
[2018-05-07] MEDS: ASCORBIC ACID 500 MG TABLET PO SCH (09:36)
[2018-05-07] MEDS: PANTOPRAZOLE 40 MG VIAL IV SCH (09:42)
[2018-05-07] MEDS: CEFEPIME 1,000 MG in SYRINGE 1 EACH IV SCH ×2 (09:47→21:26)
[2018-05-07] MEDS: CALCITONIN NASAL SPRAY 3.7 ML BOTTLE ONE NARE SCH (13:55)
[2018-05-07] MEDS: INSULIN GLARGINE 100 UNIT/ML SUBCUT SCH (14:06)
[2018-05-07] MEDS: CALCIUM (CARBONATE)/VITAMIN D 600 MG-400 UNIT TABLET PO SCH (21:30)
[2018-05-08] MEDS: ALBUTEROL/IPRATROPIUM 3 ML NEB RESP TX SCH ×4 (00:29→19:23)
[2018-05-08] MEDS: INSULIN LISPRO 100 UNIT/ML SUBCUT SCH ×4 (00:48→17:52)
[2018-05-08] MEDS: ASPIRIN 325 MG TABLET PO SCH (10:16)
[2018-05-08] MEDS: CLINDAMYCIN INJ 600 MG in PREMIX 1 EACH IV SCH ×3 (10:16→23:27)
[2018-05-08] MEDS: FUROSEMIDE 20 MG TABLET PO SCH (10:16)
[2018-05-08] MEDS: MAGNESIUM OXIDE 400 MG TABLET PO SCH (10:17)
[2018-05-08] MEDS: AMIODARONE 200 MG TABLET PO SCH (10:17)
[2018-05-08] MEDS: METOPROLOL TARTRATE 25 MG TABLET PO SCH ×2 (10:17→21:44)
[2018-05-08] MEDS: CARBIDOPA/LEVODOPA 25-100 MG TABLET PO SCH ×3 (10:17→21:44)
[2018-05-08] MEDS: ASCORBIC ACID 500 MG TABLET PO SCH (10:17)
[2018-05-08] MEDS: INSULIN GLARGINE 100 UNIT/ML SUBCUT SCH (10:18)
[2018-05-08] MEDS: levETIRAcetam LIQUID 100 MG/ML 30 ML/BOTTLE PO SCH ×2 (10:18→21:44)
[2018-05-08] MEDS: LOSARTAN 25 MG TABLET PO SCH (10:18)
[2018-05-08] MEDS: PANTOPRAZOLE 40 MG VIAL IV SCH (10:19)
[2018-05-08] MEDS: CALCITONIN NASAL SPRAY 3.7 ML BOTTLE ONE NARE SCH (10:24)
[2018-05-08 12:23] LABS: Calcium 8.7 MG/DL (8.5-10.1); Potassium 4.6 MMOL/L (3.5-5.1)
[2018-05-08] MEDS: CEFEPIME 1,000 MG in SYRINGE 1 EACH IV SCH ×2 (13:48→21:55)
[2018-05-08] MEDS: CALCIUM (CARBONATE)/VITAMIN D 600 MG-400 UNIT TABLET PO SCH (21:44)
[2018-05-09] MEDS: INSULIN LISPRO 100 UNIT/ML SUBCUT SCH ×4 (00:05→17:25)
[2018-05-09] MEDS: ALBUTEROL/IPRATROPIUM 3 ML NEB RESP TX SCH ×4 (00:25→19:47)
[2018-05-09 06:00] LABS: Basophils # 0.2 10*3/uL (0.0-0.2); Basophils % 1.2 % (0.0-0.8); Eosinophils # 0.8 10*3/uL (0.0-0.87); Eosinophils % 6.2 % (0.00-10.9); Hematocrit 34.5 VOL% (42.0-52.0); Hemoglobin 11.9 GM/DL (14.0-18.0); Immature Granulocytes % 0.7 %; Immature Granulocytes Absolute 0.08 #; Lymphocytes # 1.5 10*3/uL (1.4-4.0); Lymphocytes % 12.6 % (21.2-54.2); Mean Corpuscular HGB Conc 34.5 GM/DL (32-36); Mean Corpuscular Hemoglobin 30 PG (27-34); Mean Corpuscular Volume 86.7 FL (87-102); Mean Platelet Volume 10.3 FL (9.6-12.0); Monocytes % 8.2 % (1.7-12.7); NRBC # 0.02 10*3/uL; Neutrophils # 8.6 10*3/uL (1.4-7.4); Neutrophils % 71.1 % (38.7-73.9); Platelet Count 492 T/CUMM (130-400); Red Blood Count 3.98 MC/CUMM (3.8-5.5); Red Cell Distribution Width 13.6 % (9.3-17.3); White Blood Count 12.1 T/CUMM (4-12)
[2018-05-09 06:18] LABS: Calcium 9.1 MG/DL (8.5-10.1); Osmolality,Calculated 279.8 MOS/KG (273-304); Potassium 4.4 MMOL/L (3.5-5.1); Prealbumin 20.7 MG/DL (20-40)
[2018-05-09] MEDS: MAGNESIUM OXIDE 400 MG TABLET PO SCH (11:01)
[2018-05-09] MEDS: ASPIRIN 325 MG TABLET PO SCH (11:02)
[2018-05-09] MEDS: METOPROLOL TARTRATE 25 MG TABLET PO SCH ×2 (11:02→21:22)
[2018-05-09] MEDS: CARBIDOPA/LEVODOPA 25-100 MG TABLET PO SCH ×4 (11:02→21:22)
[2018-05-09] MEDS: AMIODARONE 200 MG TABLET PO SCH (11:02)
[2018-05-09] MEDS: FUROSEMIDE 20 MG TABLET PO SCH (11:02)
[2018-05-09] MEDS: ASCORBIC ACID 500 MG TABLET PO SCH (11:03)
[2018-05-09] MEDS: LOSARTAN 25 MG TABLET PO SCH (11:03)
[2018-05-09] MEDS: FINASTERIDE 5 MG TABLET PO SCH (11:14)
[2018-05-09] MEDS: levETIRAcetam LIQUID 100 MG/ML 30 ML/BOTTLE PO SCH ×2 (11:18→21:22)
[2018-05-09] MEDS: INSULIN GLARGINE 100 UNIT/ML SUBCUT SCH (11:38)
[2018-05-09] MEDS: CALCITONIN NASAL SPRAY 3.7 ML BOTTLE ONE NARE SCH (11:39)
[2018-05-09] MEDS: CEFEPIME 1,000 MG in SYRINGE 1 EACH IV SCH (11:42)
[2018-05-09] MEDS: PANTOPRAZOLE 40 MG VIAL IV SCH (11:51)
[2018-05-09] MEDS: CLINDAMYCIN INJ 600 MG in PREMIX 1 EACH IV SCH (11:52)
[2018-05-09] MEDS: CALCIUM (CARBONATE)/VITAMIN D 600 MG-400 UNIT TABLET PO SCH (21:22)
[2018-05-10] MEDS: INSULIN LISPRO 100 UNIT/ML SUBCUT SCH ×5 (00:41→23:53)
[2018-05-10] MEDS: ALBUTEROL/IPRATROPIUM 3 ML NEB RESP TX SCH ×4 (00:53→19:25)
[2018-05-10 06:16] LABS: Basophils # 0.2 10*3/uL (0.0-0.2); Basophils % 1.2 % (0.0-0.8); Eosinophils # 0.6 10*3/uL (0.0-0.87); Eosinophils % 4.3 % (0.00-10.9); Hematocrit 36.9 VOL% (42.0-52.0); Hemoglobin 12.5 GM/DL (14.0-18.0); Immature Granulocytes % 0.6 %; Immature Granulocytes Absolute 0.09 #; Lymphocytes # 1.7 10*3/uL (1.4-4.0); Lymphocytes % 11.5 % (21.2-54.2); Mean Corpuscular HGB Conc 33.9 GM/DL (32-36); Mean Corpuscular Hemoglobin 30 PG (27-34); Mean Corpuscular Volume 88.7 FL (87-102); Mean Platelet Volume 10.3 FL (9.6-12.0); Monocytes # 1.2 10*3/uL (0.11-0.8); Monocytes % 8.3 % (1.7-12.7); Neutrophils % 74.1 % (38.7-73.9); Platelet Count 470 T/CUMM (130-400); Red Blood Count 4.16 MC/CUMM (3.8-5.5); Red Cell Distribution Width 13.7 % (9.3-17.3); White Blood Count 14.9 T/CUMM (4-12)
[2018-05-10 06:48] LABS: Calcium 9.5 MG/DL (8.5-10.1); Potassium 4.5 MMOL/L (3.5-5.1)
[2018-05-10] MEDS: FUROSEMIDE 20 MG TABLET PO SCH (10:08)
[2018-05-10] MEDS: METOPROLOL TARTRATE 25 MG TABLET PO SCH ×2 (10:08→20:48)
[2018-05-10] MEDS: FINASTERIDE 5 MG TABLET PO SCH (10:08)
[2018-05-10] MEDS: MAGNESIUM OXIDE 400 MG TABLET PO SCH (10:08)
[2018-05-10] MEDS: ASPIRIN 325 MG TABLET PO SCH (10:08)
[2018-05-10] MEDS: CARBIDOPA/LEVODOPA 25-100 MG TABLET PO SCH ×4 (10:08→20:48)
[2018-05-10] MEDS: AMIODARONE 200 MG TABLET PO SCH (10:09)
[2018-05-10] MEDS: ASCORBIC ACID 500 MG TABLET PO SCH (10:09)
[2018-05-10] MEDS: PANTOPRAZOLE 40 MG VIAL IV SCH (10:09)
[2018-05-10] MEDS: INSULIN GLARGINE 100 UNIT/ML SUBCUT SCH (10:09)
[2018-05-10] MEDS: LOSARTAN 25 MG TABLET PO SCH (10:09)
[2018-05-10] MEDS: levETIRAcetam LIQUID 100 MG/ML 30 ML/BOTTLE PO SCH ×2 (10:09→20:48)
[2018-05-10] MEDS: CALCITONIN NASAL SPRAY 3.7 ML BOTTLE ONE NARE SCH (10:10)
[2018-05-10] MEDS: CALCIUM (CARBONATE)/VITAMIN D 600 MG-400 UNIT TABLET PO SCH (20:48)
[2018-05-11] MEDS: ALBUTEROL/IPRATROPIUM 3 ML NEB RESP TX SCH ×4 (02:10→19:17)
[2018-05-11 05:48] LABS: Basophils # 0.2 10*3/uL (0.0-0.2); Basophils % 1.5 % (0.0-0.8); Eosinophils # 0.6 10*3/uL (0.0-0.87); Eosinophils % 5.5 % (0.00-10.9); Hematocrit 36.6 VOL% (42.0-52.0); Hemoglobin 12.2 GM/DL (14.0-18.0); Immature Granulocytes % 0.9 %; Lymphocytes # 1.7 10*3/uL (1.4-4.0); Lymphocytes % 15.1 % (21.2-54.2); Mean Corpuscular HGB Conc 33.3 GM/DL (32-36); Mean Corpuscular Hemoglobin 30 PG (27-34); Mean Corpuscular Volume 89.5 FL (87-102); Mean Platelet Volume 10.8 FL (9.6-12.0); Monocytes # 0.9 10*3/uL (0.11-0.8); Neutrophils # 7.9 10*3/uL (1.4-7.4); Red Blood Count 4.09 MC/CUMM (3.8-5.5); Red Cell Distribution Width 13.8 % (9.3-17.3); White Blood Count 11.4 T/CUMM (4-12)
[2018-05-11 05:50] LABS: Platelet Count 267 T/CUMM (130-400)
[2018-05-11 06:26] LABS: Calcium 9.3 MG/DL (8.5-10.1); Osmolality,Calculated 282.8 MOS/KG (273-304); Potassium 4.5 MMOL/L (3.5-5.1)
[2018-05-11] MEDS: INSULIN LISPRO 100 UNIT/ML SUBCUT SCH ×3 (06:45→19:06)
[2018-05-11] MEDS: AMIODARONE 200 MG TABLET PO SCH (10:53)
[2018-05-11] MEDS: INSULIN GLARGINE 100 UNIT/ML SUBCUT SCH (10:54)
[2018-05-11] MEDS: levETIRAcetam LIQUID 100 MG/ML 30 ML/BOTTLE PO SCH ×2 (10:54→21:56)
[2018-05-11] MEDS: LOSARTAN 25 MG TABLET PO SCH (10:54)
[2018-05-11] MEDS: METOPROLOL TARTRATE 25 MG TABLET PO SCH ×2 (10:55→21:55)
[2018-05-11] MEDS: FUROSEMIDE 20 MG TABLET PO SCH (10:55)
[2018-05-11] MEDS: MAGNESIUM OXIDE 400 MG TABLET PO SCH (10:55)
[2018-05-11] MEDS: PANTOPRAZOLE 40 MG VIAL IV SCH (10:56)
[2018-05-11] MEDS: CARBIDOPA/LEVODOPA 25-100 MG TABLET PO SCH ×4 (10:56→21:56)
[2018-05-11] MEDS: FINASTERIDE 5 MG TABLET PO SCH (10:56)
[2018-05-11] MEDS: ASCORBIC ACID 500 MG TABLET PO SCH (10:56)
[2018-05-11] MEDS: CALCITONIN NASAL SPRAY 3.7 ML BOTTLE ONE NARE SCH (10:58)
[2018-05-11] MEDS: CALCIUM (CARBONATE)/VITAMIN D 600 MG-400 UNIT TABLET PO SCH (21:55)
[2018-05-12] MEDS: INSULIN LISPRO 100 UNIT/ML SUBCUT SCH ×4 (00:59→18:21)
[2018-05-12] MEDS: ALBUTEROL/IPRATROPIUM 3 ML NEB RESP TX SCH ×4 (01:32→19:22)
[2018-05-12 06:04] LABS: Basophils # 0.2 10*3/uL (0.0-0.2); Basophils % 1.4 % (0.0-0.8); Eosinophils # 0.6 10*3/uL (0.0-0.87); Eosinophils % 5.4 % (0.00-10.9); Hematocrit 37.5 VOL% (42.0-52.0); Hemoglobin 12.7 GM/DL (14.0-18.0); Immature Granulocytes % 0.6 %; Immature Granulocytes Absolute 0.06 #; Lymphocytes # 1.8 10*3/uL (1.4-4.0); Lymphocytes % 16.7 % (21.2-54.2); Mean Corpuscular HGB Conc 33.9 GM/DL (32-36); Mean Corpuscular Hemoglobin 30 PG (27-34); Mean Corpuscular Volume 88.4 FL (87-102); Mean Platelet Volume 11.3 FL (9.6-12.0); Monocytes # 0.8 10*3/uL (0.11-0.8); Monocytes % 7.7 % (1.7-12.7); Neutrophils # 7.3 10*3/uL (1.4-7.4); Neutrophils % 68.2 % (38.7-73.9); Platelet Count 367 T/CUMM (130-400); Red Blood Count 4.24 MC/CUMM (3.8-5.5); Red Cell Distribution Width 13.8 % (9.3-17.3); White Blood Count 10.8 T/CUMM (4-12)
[2018-05-12 06:30] LABS: Alanine Aminotransferase < 9 U/L (16-61); Alkaline Phosphatase 75 U/L (45-117); Aspartate Amino Transferase 15 U/L (0-37); Blood Urea Nitrogen 27 MG/DL (7-18); Calcium 9.8 MG/DL (8.5-10.1); Glucose 157 MG/DL (74-106); Osmolality,Calculated 280.8 MOS/KG (273-304); Potassium 4.2 MMOL/L (3.5-5.1); Sodium 137 MMOL/L (136-145); Total Protein 7.4 G/DL (6.4-8.3)
[2018-05-12] MEDS: LOSARTAN 25 MG TABLET PO SCH (09:49)
[2018-05-12] MEDS: AMIODARONE 200 MG TABLET PO SCH (09:49)
[2018-05-12] MEDS: FUROSEMIDE 20 MG TABLET PO SCH (09:50)
[2018-05-12] MEDS: INSULIN GLARGINE 100 UNIT/ML SUBCUT SCH (09:50)
[2018-05-12] MEDS: MAGNESIUM OXIDE 400 MG TABLET PO SCH (09:50)
[2018-05-12] MEDS: METOPROLOL TARTRATE 25 MG TABLET PO SCH ×2 (09:50→21:05)
[2018-05-12] MEDS: FINASTERIDE 5 MG TABLET PO SCH (09:51)
[2018-05-12] MEDS: PANTOPRAZOLE 40 MG VIAL IV SCH (09:51)
[2018-05-12] MEDS: CARBIDOPA/LEVODOPA 25-100 MG TABLET PO SCH ×4 (09:51→21:05)
[2018-05-12] MEDS: ASCORBIC ACID 500 MG TABLET PO SCH (09:51)
[2018-05-12] MEDS: CALCITONIN NASAL SPRAY 3.7 ML BOTTLE ONE NARE SCH (09:52)
[2018-05-12] MEDS: levETIRAcetam LIQUID 100 MG/ML 30 ML/BOTTLE PO SCH ×2 (12:27→21:05)
[2018-05-12] MEDS: CALCIUM (CARBONATE)/VITAMIN D 600 MG-400 UNIT TABLET PO SCH (21:05)
[2018-05-13] MEDS: INSULIN LISPRO 100 UNIT/ML SUBCUT SCH ×4 (01:17→18:02)
[2018-05-13] MEDS: ALBUTEROL/IPRATROPIUM 3 ML NEB RESP TX SCH ×4 (05:10→19:11)
[2018-05-13 05:29] LABS: Basophils # 0.2 10*3/uL (0.0-0.2); Basophils % 1.6 % (0.0-0.8); Eosinophils # 0.6 10*3/uL (0.0-0.87); Eosinophils % 6.2 % (0.00-10.9); Hemoglobin 11.9 GM/DL (14.0-18.0); Immature Granulocytes % 0.5 %; Immature Granulocytes Absolute 0.05 #; Lymphocytes # 1.9 10*3/uL (1.4-4.0); Lymphocytes % 18.5 % (21.2-54.2); Mean Corpuscular Hemoglobin 30 PG (27-34); Mean Corpuscular Volume 87.9 FL (87-102); Mean Platelet Volume 11.6 FL (9.6-12.0); Monocytes # 0.9 10*3/uL (0.11-0.8); Monocytes % 9.3 % (1.7-12.7); Neutrophils # 6.5 10*3/uL (1.4-7.4); Neutrophils % 63.9 % (38.7-73.9); Platelet Count 261 T/CUMM (130-400); Red Blood Count 3.98 MC/CUMM (3.8-5.5); Red Cell Distribution Width 13.8 % (9.3-17.3); White Blood Count 10.2 T/CUMM (4-12)
[2018-05-13] MEDS: LOSARTAN 25 MG TABLET PO SCH (09:06)
[2018-05-13] MEDS: METOPROLOL TARTRATE 25 MG TABLET PO SCH ×2 (09:06→22:20)
[2018-05-13] MEDS: AMIODARONE 200 MG TABLET PO SCH (09:06)
[2018-05-13] MEDS: ASCORBIC ACID 500 MG TABLET PO SCH (15:40)
[2018-05-13] MEDS: CARBIDOPA/LEVODOPA 25-100 MG TABLET PO SCH ×4 (15:40→21:45)
[2018-05-13] MEDS: MAGNESIUM OXIDE 400 MG TABLET PO SCH (15:41)
[2018-05-13] MEDS: CALCITONIN NASAL SPRAY 3.7 ML BOTTLE ONE NARE SCH (15:41)
[2018-05-13] MEDS: FUROSEMIDE 20 MG TABLET PO SCH (15:41)
[2018-05-13] MEDS: FINASTERIDE 5 MG TABLET PO SCH (15:41)
[2018-05-13] MEDS: PANTOPRAZOLE 40 MG VIAL IV SCH (15:41)
[2018-05-13] MEDS: INSULIN GLARGINE 100 UNIT/ML SUBCUT SCH (15:42)
[2018-05-13] MEDS: levETIRAcetam LIQUID 100 MG/ML 30 ML/BOTTLE PO SCH ×2 (15:42→21:44)
[2018-05-13] MEDS: CALCIUM (CARBONATE)/VITAMIN D 600 MG-400 UNIT TABLET PO SCH (21:45)
[2018-05-14] MEDS: ALBUTEROL/IPRATROPIUM 3 ML NEB RESP TX SCH ×4 (00:24→20:18)
[2018-05-14] MEDS: INSULIN LISPRO 100 UNIT/ML SUBCUT SCH ×4 (00:26→18:21)
[2018-05-14 05:34] LABS: Basophils # 0.2 10*3/uL (0.0-0.2); Basophils % 2.6 % (0.0-0.8); Eosinophils # 0.5 10*3/uL (0.0-0.87); Eosinophils % 6.5 % (0.00-10.9); Hematocrit 33.6 VOL% (42.0-52.0); Hemoglobin 11.3 GM/DL (14.0-18.0); Immature Granulocytes % 0.5 %; Immature Granulocytes Absolute 0.04 #; Lymphocytes # 1.8 10*3/uL (1.4-4.0); Lymphocytes % 22.5 % (21.2-54.2); Mean Corpuscular HGB Conc 33.6 GM/DL (32-36); Mean Corpuscular Hemoglobin 30 PG (27-34); Mean Corpuscular Volume 89.1 FL (87-102); Mean Platelet Volume 10.3 FL (9.6-12.0); Monocytes # 0.8 10*3/uL (0.11-0.8); Monocytes % 9.2 % (1.7-12.7); Neutrophils # 4.8 10*3/uL (1.4-7.4); Neutrophils % 58.7 % (38.7-73.9); Platelet Count 389 T/CUMM (130-400); Red Blood Count 3.77 MC/CUMM (3.8-5.5); Red Cell Distribution Width 13.6 % (9.3-17.3); White Blood Count 8.2 T/CUMM (4-12)
[2018-05-14 05:51] LABS: Calcium 9.5 MG/DL (8.5-10.1)
[2018-05-14 05:52] LABS: Osmolality,Calculated 286.5 MOS/KG (273-304); Potassium 4.3 MMOL/L (3.5-5.1)
[2018-05-14 06:07] LABS: Band Neutrophils 5 % (0-10); Eosinophils 11 % (0-10); Lymphocytes 26 % (20-55); Segmented Neutrophils 47 % (50-85); Total Cells Counted 100
[2018-05-14 06:10] LABS: Anisocytosis 1+; Platelet Estimate Normal
[2018-05-14] MEDS: LOSARTAN 25 MG TABLET PO SCH (09:15)
[2018-05-14] MEDS: MAGNESIUM OXIDE 400 MG TABLET PO SCH (09:15)
[2018-05-14] MEDS: FINASTERIDE 5 MG TABLET PO SCH (09:15)
[2018-05-14] MEDS: METOPROLOL TARTRATE 25 MG TABLET PO SCH ×2 (09:16→21:15)
[2018-05-14] MEDS: FUROSEMIDE 20 MG TABLET PO SCH (09:16)
[2018-05-14] MEDS: CARBIDOPA/LEVODOPA 25-100 MG TABLET PO SCH ×4 (09:16→21:14)
[2018-05-14] MEDS: ASCORBIC ACID 500 MG TABLET PO SCH (09:16)
[2018-05-14] MEDS: INSULIN GLARGINE 100 UNIT/ML SUBCUT SCH (09:16)
[2018-05-14] MEDS: levETIRAcetam LIQUID 100 MG/ML 30 ML/BOTTLE PO SCH ×2 (09:17→21:15)
[2018-05-14] MEDS: CALCITONIN NASAL SPRAY 3.7 ML BOTTLE ONE NARE SCH (09:18)
[2018-05-14] MEDS: PANTOPRAZOLE 40 MG VIAL IV SCH (09:18)
[2018-05-14] MEDS: AMIODARONE 200 MG TABLET PO SCH (09:19)
[2018-05-14] MEDS: CALCIUM (CARBONATE)/VITAMIN D 600 MG-400 UNIT TABLET PO SCH (21:14)
[2018-05-15] MEDS: ALBUTEROL/IPRATROPIUM 3 ML NEB RESP TX SCH ×4 (00:22→20:19)
[2018-05-15] MEDS: INSULIN LISPRO 100 UNIT/ML SUBCUT SCH ×4 (00:55→18:19)
[2018-05-15 07:16] LABS: Basophils # 0.2 10*3/uL (0.0-0.2); Basophils % 1.9 % (0.0-0.8); Eosinophils # 0.4 10*3/uL (0.0-0.87); Eosinophils % 5.4 % (0.00-10.9); Hematocrit 34.2 VOL% (42.0-52.0); Hemoglobin 11.3 GM/DL (14.0-18.0); Immature Granulocytes % 0.3 %; Immature Granulocytes Absolute 0.02 #; Lymphocytes # 1.6 10*3/uL (1.4-4.0); Lymphocytes % 20.5 % (21.2-54.2); Mean Corpuscular Hemoglobin 30 PG (27-34); Mean Platelet Volume 10.5 FL (9.6-12.0); Monocytes # 0.6 10*3/uL (0.11-0.8); Monocytes % 7.6 % (1.7-12.7); Neutrophils % 64.3 % (38.7-73.9); Platelet Count 384 T/CUMM (130-400); Red Blood Count 3.76 MC/CUMM (3.8-5.5); White Blood Count 7.8 T/CUMM (4-12)
[2018-05-15 07:43] LABS: Calcium 8.9 MG/DL (8.5-10.1); Osmolality,Calculated 290.3 MOS/KG (273-304); Potassium 4.1 MMOL/L (3.5-5.1)
[2018-05-15] MEDS: FINASTERIDE 5 MG TABLET PO SCH (10:50)
[2018-05-15] MEDS ORDERED: ENOXAPARIN 30 MG/0.3 ML SYRINGE SUBCUT SCH (11:00)
[2018-05-15] MEDS: FUROSEMIDE 20 MG TABLET PO SCH (11:04)
[2018-05-15] MEDS: PANTOPRAZOLE 40 MG VIAL IV SCH (11:04)
[2018-05-15] MEDS: METOPROLOL TARTRATE 25 MG TABLET PO SCH ×2 (11:04→21:04)
[2018-05-15] MEDS: ASCORBIC ACID 500 MG TABLET PO SCH (11:05)
[2018-05-15] MEDS: MAGNESIUM OXIDE 400 MG TABLET PO SCH (11:05)
[2018-05-15] MEDS: CARBIDOPA/LEVODOPA 25-100 MG TABLET PO SCH ×4 (11:05→21:00)
[2018-05-15] MEDS: AMIODARONE 200 MG TABLET PO SCH (11:05)
[2018-05-15] MEDS: INSULIN GLARGINE 100 UNIT/ML SUBCUT SCH (11:06)
[2018-05-15] MEDS: LOSARTAN 25 MG TABLET PO SCH (11:08)
[2018-05-15] MEDS: CALCITONIN NASAL SPRAY 3.7 ML BOTTLE ONE NARE SCH (11:09)
[2018-05-15] MEDS: ASPIRIN CHEW 81 MG TABLET PO SCH (12:00)
[2018-05-15] MEDS: levETIRAcetam LIQUID 100 MG/ML 30 ML/BOTTLE PO SCH ×2 (12:01→20:59)
[2018-05-15] MEDS: CALCIUM (CARBONATE)/VITAMIN D 600 MG-400 UNIT TABLET PO SCH (21:04)
[2018-05-16] MEDS: INSULIN LISPRO 100 UNIT/ML SUBCUT SCH ×4 (00:16→19:15)
[2018-05-16] MEDS: ALBUTEROL/IPRATROPIUM 3 ML NEB RESP TX SCH ×4 (00:43→19:55)
[2018-05-16 05:17] LABS: Prealbumin 18.4 MG/DL (20-40)
[2018-05-16] MEDS: AMIODARONE 200 MG TABLET PO SCH (09:17)
[2018-05-16] MEDS: MAGNESIUM OXIDE 400 MG TABLET PO SCH (09:17)
[2018-05-16] MEDS: LOSARTAN 25 MG TABLET PO SCH (09:18)
[2018-05-16] MEDS: FUROSEMIDE 20 MG TABLET PO SCH (09:18)
[2018-05-16] MEDS: FINASTERIDE 5 MG TABLET PO SCH (09:18)
[2018-05-16] MEDS: PANTOPRAZOLE 40 MG VIAL IV SCH (09:18)
[2018-05-16] MEDS: METOPROLOL TARTRATE 25 MG TABLET PO SCH ×2 (09:18→21:59)
[2018-05-16] MEDS: INSULIN GLARGINE 100 UNIT/ML SUBCUT SCH (09:18)
[2018-05-16] MEDS: ASPIRIN CHEW 81 MG TABLET PO SCH (09:18)
[2018-05-16] MEDS: ASCORBIC ACID 500 MG TABLET PO SCH (09:18)
[2018-05-16] MEDS: CARBIDOPA/LEVODOPA 25-100 MG TABLET PO SCH ×4 (09:18→21:59)
[2018-05-16] MEDS: levETIRAcetam LIQUID 100 MG/ML 30 ML/BOTTLE PO SCH ×2 (09:19→21:59)
[2018-05-16] MEDS: CALCITONIN NASAL SPRAY 3.7 ML BOTTLE ONE NARE SCH (09:19)
[2018-05-16] MEDS: CALCIUM (CARBONATE)/VITAMIN D 600 MG-400 UNIT TABLET PO SCH (21:59)
[2018-05-17] MEDS: INSULIN LISPRO 100 UNIT/ML SUBCUT SCH ×3 (01:08→13:29)
[2018-05-17] MEDS: ALBUTEROL/IPRATROPIUM 3 ML NEB RESP TX SCH ×3 (01:11→13:49)
[2018-05-17 06:54] LABS: Basophils # 0.2 10*3/uL (0.0-0.2); Basophils % 1.8 % (0.0-0.8); Eosinophils # 0.8 10*3/uL (0.0-0.87); Eosinophils % 8.2 % (0.00-10.9); Hematocrit 34.7 VOL% (42.0-52.0); Hemoglobin 11.4 GM/DL (14.0-18.0); Immature Granulocytes % 0.5 %; Immature Granulocytes Absolute 0.05 #; Lymphocytes # 2.3 10*3/uL (1.4-4.0); Lymphocytes % 23.4 % (21.2-54.2); Mean Corpuscular HGB Conc 32.9 GM/DL (32-36); Mean Corpuscular Hemoglobin 30 PG (27-34); Mean Corpuscular Volume 90.4 FL (87-102); Mean Platelet Volume 10.4 FL (9.6-12.0); Monocytes # 0.8 10*3/uL (0.11-0.8); Monocytes % 8.1 % (1.7-12.7); Neutrophils # 5.7 10*3/uL (1.4-7.4); Platelet Count 383 T/CUMM (130-400); Red Blood Count 3.84 MC/CUMM (3.8-5.5); Red Cell Distribution Width 13.8 % (9.3-17.3); White Blood Count 9.8 T/CUMM (4-12)
[2018-05-17 07:08] LABS: Calcium 9.4 MG/DL (8.5-10.1); Osmolality,Calculated 283.5 MOS/KG (273-304); Potassium 4.2 MMOL/L (3.5-5.1)
[2018-05-17] MEDS: FUROSEMIDE 20 MG TABLET PO SCH (10:46)
[2018-05-17] MEDS: METOPROLOL TARTRATE 25 MG TABLET PO SCH (10:46)
[2018-05-17] MEDS: FINASTERIDE 5 MG TABLET PO SCH (10:46)
[2018-05-17] MEDS: CARBIDOPA/LEVODOPA 25-100 MG TABLET PO SCH ×2 (10:46→13:30)
[2018-05-17] MEDS: MAGNESIUM OXIDE 400 MG TABLET PO SCH (10:46)
[2018-05-17] MEDS: ASCORBIC ACID 500 MG TABLET PO SCH (10:46)
[2018-05-17] MEDS: INSULIN GLARGINE 100 UNIT/ML SUBCUT SCH (10:47)
[2018-05-17] MEDS: levETIRAcetam LIQUID 100 MG/ML 30 ML/BOTTLE PO SCH (10:47)
[2018-05-17] MEDS: AMIODARONE 200 MG TABLET PO SCH (10:47)
[2018-05-17] MEDS: LOSARTAN 25 MG TABLET PO SCH (10:47)
[2018-05-17] MEDS: ASPIRIN CHEW 81 MG TABLET PO SCH (10:47)
[2018-05-17] MEDS: PANTOPRAZOLE 40 MG VIAL IV SCH (10:48)
[2018-05-17] MEDS: CALCITONIN NASAL SPRAY 3.7 ML BOTTLE ONE NARE SCH (12:10)
[2018-05-17 17:14] VITALS: BP 105/63
== END 2018-05-17 17:40 | disposition home or self-care (01) | DRG 207 ==
LOC: EDUNIT# → EDBD → N.ED 21:08 → N.ICU 22:57 → N.3E 05-05 10:32
PROVIDERS: ADMIT Family Medicine; ATTEND Family Medicine